=== PATIENT | female | born 1980 | race Caucasian/White ===

== ENCOUNTER → 2023-12-31 | Outpatient (CLI) | payer BC, SELFPAY ==
--- OUTSIDE RECORDS SUMMARY | 2023-12-31 19:03 | XMS RPT_ITS | CCD ---
Author Name Unknown Address [address] [place] [address] Organization [facility] Care Team Providers Care Chief Scientist Name Role Phone Deonte Hanson MD Primary Care Provider [phone] KJ LAW Attending Unavailable DEONTE HANSON Referring Unavailable DEONTE HANSON Primary Care Unavailable DEONTE HANSON Referring Unavailable DEONTE HANSON Primary Care Unavailable DEONTE HANSON Primary Care Unavailable DEONTE HANSON Referring Unavailable Deonte Hanson MD Primary Care Provider Allergies Allergy Classification Reported Allergen(s) Allergy Type Date of Onset Reaction(s) Facility (11 sources) Amoxicillin; Translations: [AMOXICILLIN] Drug Allergy 12-31-2006 [facility] Work Phone: (11 sources) cefdinir; Translations: [CEFDINIR] Drug Allergy 06-17-2007 [facility] Work Phone: (11 sources) Dextromethorphan; Translations: [DEXTROMETHORPHAN ] Drug Allergy 01-05-2006 [facility] Work Phone: Medications Current Medications Medication Drug Class(es) Dates Sig (Normalized) Sig (Original) clobetasol propionate 0.5 mg/ml medicated shampoo (1 source) Corticosteroid Start: 10-11-2022 End: 11-10-2022 Clobetasol Propionate (CLOBEX) 0.05 % sham Indications: Contact dermatitis, unspecified contact dermatitis type, unspecified trigger Apply to affected area two times a week. 118 mL 3 10/11/2022 11/10/2022 Active Completed/Discontinued Medications Medication Drug Class(es) Dates Sig (Normalized) Sig (Original) hydrocortisone 25 mg/ml topical cream (10 sources) Corticosteroid Start: 12-29-2021 hydrocortisone (ANUSOL-HC) 2.5 % rectal cream Indications: Hemorrhoids, unspecified hemorrhoid type 1 application by RECTAL route twice daily. 28 g 2 12/29/2021 Active Problems Problem Classification Problem Date Documented Da te Episodic/Chronic Allergic reactions (1 source) Contact dermatitis; Translations: [Unspecified contact dermatitis, unspecified cause] Episodic Headache; including migraine (11 sources) Migraine without aura; Translations: [Migraine without aura, not intractable, without status migrainosus] Onset: 06-16-2008 12-05-2016 Chronic Other screening for suspected conditions (not mental disorders or infectious disease) (5 sources) Patient encounter status; Translations: [Encounter for screening mammogram for malignant neoplasm of breast] Onset: 11-30-2022 Episodic Thyroid disorders (20 sources) Toxic diffuse goiter; 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] Onset: 03-22-2009 03-22-2009 Chronic Results Test Name Value Interpretation Reference Range Facil ity Vital Signs Date Time Vital Sign Value Performing Clinician Archie cha 10-11-2022 07:48-0500 Body weight 64.86 kg Kj Law APRN.CNP Work Phone: [facility] 10-11-2022 07:48-0500 Diastolic blood pressure 68 mm[Hg] Kj Law APRN.CNP Work Phone: [facility] 10-11-2022 07:48-0500 Heart rate 70 /min Kj Law APRN.BALBIR Work Phone: [facility] 10-11-2022 07:48-0500 Respiratory rate 16 /min Kj Law APRN.CNP Work Phone: [facility] 10-11-2022 07:48-0500 SaO2% (BldA) [Mass fraction] 100 % Kj Law APRN.CNP Work Phone: [facility] 10-11-2022 07:48-0500 Systolic blood pressure 120 mm[Hg] Kj Law APRN.BALBIR Work Phone: [facility] Encounters Encounter Date Encounter Type Care Provider Facility Start: 06-21-2023 ambulatory Sasha Rodriguez MD Work Phone: OB/Gynecology Procedures Date Procedure Procedure Detail Performing Clinician Start: 12-20-2022 Digital breast tomosynthesis unilateral Deonte Hanson MD Work Phone: Start: 11-30-2022 Mammography Deonte Hanson MD Work Phone: Start: 06-09-2021 Mammography Deonte Hanson MD Work Phone: Start: 05-11-2020 Adult depression screening assessment Deonte Hanson MD Work Phone: Start: 06-11-2012 History of radiation therapy H/O radioactive iodine thyroid ablation Deonte Hanson MD Work Phone: Plan of Treatment Date Care Activity Detail Author Start: 05-14-2025 HPV TESTING HPV TESTING [facility] Start: 11-30-2023 Mammography [facility] Start: 10-11-2023 ANNUAL PCP TEAM CHRONIC DISEASE VISIT ANNUAL PCP TEAM CHRONIC DISEASE VISIT [facility] Start: 06-22-2023 Covid-19 Vaccine ( season) Covid-19 Vaccine () [facility] Start: 06-22-2023 Influenza vaccination [facility] Start: 01-01-2023 End: 03-03-2023 Comprehensive metabolic 2000 panel - Serum or Plasma COMP METABOLIC PANEL Lab Routine Other specified hypothyroidism Expected: 01/01/2023, Expires: 03/03/2023 [facility] Work Phone: Immunizations Immunization Date Immunization Notes Care Provider Fa cility 01-27-2021 COVID-19 original vaccine, full dose, monovalent (MODERNA) Deonte Hanson MD Work Phone: [facility] 12-31-2020 COVID-19 original vaccine, full dose, monovalent (MODERNA) Deonte Hanson MD Work Phone: [facility] 08-05-2019 influenza virus vaccine, unspecified formulation Diagnostic Wstr [facility] 07-13-2012 influenza virus vaccine, unspecified formulation Deonte Hanson MD Work Phone: [facility] Work Phone: 07-29-2011 influenza virus vaccine, unspecified formulation Deonte Hanson MD Work Phone: [facility] 11-19-2009 novel [id number], all formulations Deonte Hanson MD Work Phone: [facility] 06-16-2008 tetanus toxoid, reduced diphtheria toxoid, and acellular pertussis vaccine, adsorbed Deonte Hanson MD Work Phone: [facility] Work Phone: 05-30-1990 tetanus and diphther ia toxoids, adsorbed, preservative free, for adult use (2 Lf of tetanus toxoid and 2 Lf of diphtheria toxoid) Deonte Hanson MD Work Phone: [facility] Work Phone: Payers Date Payer Category Payer Unknown [id number] 2018 Unknown [id number] Social History Date Type Detail Facility Start: 06-21-2011 End: 10-11-2022 Tobacco smoking status NHIS Ex-smoker [facility] Work Phone: End: 09-05-2007 History of tobacco use Current smoker [facility] Work Phone: End: 09-05-2007 History of tobacco use Cigarette Smoker [facility] Work Phone: Start: 06-21-2011 End: 10-11-2022 Tobacco use and exposure Smokeless tobacco non-user [facility] Work Phone: Start: 06-09-2021 End: 10-11-2022 Alcohol intake Current drinker of alcohol (finding) [facility] Start: 05-14-2020 History SDOH Alcohol Frequency 4 [facility] Start: 05-11-2020 End: 05-14-2020 History SDOH Alcohol Std Drinks 1 [facility] Start: 06-12-2014 History SDOH Alcohol Comment Socially [facility] Start: 05-11-2020 End: 05-14-2020 History SDOH Social Connections Phone 2 [facility] Start: 05-11-2020 History SDOH Social Connections Meetings 98 [facility] Start: 05-11-2020 History SDOH Social Connections Living 3 [facility] Start: 05-14-2020 History SDOH Financial 5 [facility] Start: 05-11-2020 Education 17 [facility] Start: 1980 Sex Assigned At Not on file [facility] Start: 05-11-2020 End: 11-17-2022 History of Social function [facility] Start: 05-11-2020 End: 11-17-2022 Social connection and isolation panel [facility] Do you belong to any clubs or organizations such as hoahaoism groups, unions, fraternal or athletic groups, or school groups? No [facility] How often do you att end meetings of the clubs or organizations you belong to? Patient refused [facility] Are you now , , , , never or living with a partner? [facility] How often to you hav e a drink containing alcohol? 2-3 time sa week [facility] How many standard dr inks containing alcohol do you have on a typical day? 1 or 2 [facility] How often do you hav e 6 or more drinks on 1 occasion? Never [facility] Do you feel stress - tense, restless, nervous, or anxious, or unable to sleep at night because your mind is troubled all the time - these days [OSQ] Only a little [facility] (I/We) worried wheth er (my/our) food would run out before (I/we) got money to buy more. Never true [facility] Clinical Notes 06-11-2012 to 06-21-2023 Telephone Encounter - Suzanne Resendiz LPN - 06/21/2023 2:24 PM EDTTelephone Encounter - Suzanne Resendiz LPN - 06/21/2023 2:04 PM EDTTelephone Encounter - Elisha Bone Ma - 01/01/2023 8:20 AM EDT Note Date & Type Note Facility 06-21-2023 Miscellaneous Notes Formattin g of this note might be different from the original. Form faxed to 's insurance company. Suzanne Resendiz LPN Form printed and given to provider to complete. Suzanne Resendiz LPN I can't view the image for the file. documented in this encounter [facility] 02-27-2023 Miscellaneous Notes Formattin g of this note might be different from the original. Pt calls to request lab orders be faxed to [facility] @ [phone]. Orders faxed as requested. Syl Jennings LPN documented in this encounter [facility] 01-01-2023 Miscellaneous Notes Formattin g of this note is different from the original. The following approved medication requests have been transmitted electronically. Requested Prescriptions Signed Prescriptions Disp Refills levothyroxine (SYNTHROID) 175 mcg tablet 90 tablet 0 Sig: Take 1 tablet by mouth daily before breakfast. SUMAtriptan (IMITREX) 50 mg tablet 9 tablet 0 Sig: Take 1 tablet by mouth. START AT ONSET OF HEADACHE. MAY REPEAT DOSE AFTER 2 HOURS. Сергей Arzate APRN.BALBIR Pt requesting refills on Thyroid - 12/12/21 #90 w/3 Sumatriptan - 12/12/21 # 9 w/11. Pt has only been seen acutely for visit on 10/11/22. Last visit in 04/2021. No appt scheduled at this time. Pt needs appt. Elisha Bone Ma documented in this encounter [facility] 12-25-2022 Miscellaneous Notes Formattin g of this note might be different from the original. Office received fax from [employer] for [employer] Request Form. This has been completed by pt an PCP and has been faxed back to [phone]. Elisha Bone Ma documented in this encounter [facility] 12-20-2022 Note HNO ID: [id number] Author: RT Stuart(Yemi) Service: ? Author Type: Production Reproduction Manager Type: Progress Notes Filed: 12/20/2022 1:09 PM Note Text: Radiology Service Progress Note PATIENT NAME: Marti Morgan DATE OF SERVICE: December 20, 2022 TIME: 1:09 PM PATIENT IDENTITY VERIFICATION COMPLETED USING TWO (2) IDENTIFIERS: Name and Date of confirmed by patient verbally. FALL SCREENING: Has the patient had 2 falls in the last year or 1 fall with injury or currently using an Ambulatory Assistive Device (Walker, Cane, Wheelchair, Crutches, etc.)? No PATIENT GENDER DATA: Female. status: : No status: NO. PATIENT RELEVANT IMPLANT DATA REVIEWED: Not Applicable RADIOLOGY DEPARTMENT: Mammography PERIPHERAL IV DATA: Not applicable SIGNED BY: RT Stuart(R) December 20, 2022 1:09 PM [facility] 12-20-2022 History of Presen t illness Narrative Radiology Service Progress Note PATIENT NAME: Marti Morgan DATE OF SERVICE: December 20, 2022 TIME: 1:09 PM PATIENT IDENTITY VERIFICATION COMPLETED USING TWO (2) IDENTIFIERS: Name and Date of confirmed by patient verbally. FALL SCREENING: Has the patient had 2 falls in the last year or 1 fall with injury or currently using an Ambulatory Assistive Device (Walker, Cane, Wheelchair, Crutches, etc.)? No PATIENT GENDER DATA: Female. status: : No status: NO. PATIENT RELEVANT IMPLANT DATA REVIEWED: Not Applicable RADIOLOGY DEPARTMENT: Mammography PERIPHERAL IV DATA: Not applicable SIGNED BY: RT Stuart(R) December 20, 2022 1:09 PM documented in this encounter [facility] 12-01-2022 Miscellaneous Notes Formattin g of this note might be different from the original. Pt called and notified of results below, verbalized understanding. Call back number given to pt to schedule. Elisha Bone Ma Please notify patient that her mammogram showed an indeterminate area in her left breast, so a diagnostic mammogram and ultrasound is recommended and ordered Deonte Hanson MD documented in this encounter [facility] 11-30-2022 Miscellaneous Notes Formattin g of this note might be different from the original. December 01, 2022 PID: [id number] Marti Morgan [address] [place] [address] Dear Ms. Morgan, Your recent breast imaging exam on 11/30/2022 showed a possible finding that requires additional imaging studies for a complete evaluation. Most such findings are probably benign (not cancer). Your mammogram demonstrates that you have dense breast tissue, which could hide abnormalities. Dense breast tissue, in and of itself, is a relatively common condition. Therefore, this information is not provided to cause undue concern; rather, it is to raise your awareness and promote discussion with your health care provider regarding the presence of dense breast tissue in addition to other risk factors. If you have a healthcare provider who ordered/prescribed your screening mammogram: Please call [phone] or [phone]: [phone] to schedule an appointment for your additional imaging (if you have not already done so). If you DO NOT have a healthcare provider (ie you did not have an order/prescription for your screening mammogram): Please call to schedule an appointment for your additional imaging (if you have not already done so). You must have an order/prescription from your physician when calling to schedule your appointment. If your order/prescription is not electronic, you must bring the hard copy with you on the day of your exam to avoid delays. Your imaging studies and reports are kept on file at [facility] as part of your permanent medical record, and are available for your continuing care. Thank you for allowing us to help in meeting your health care needs. Sincerely, Dr. Jerry Interpreting Radiologist [facility] (Additional imaging) documented in this encounter [facility] 11-30-2022 Note HNO ID: [id number] Author: RT Alo(R) Service: ? Author Type: Technologist Type: Progress Notes Filed: 11/30/2022 7:29 AM Note Text: Radiology Service Progress Note PATIENT NAME: Marti Morgan DATE OF SERVICE: November 30, 2022 TIME: 7:29 AM PATIENT IDENTITY VERIFICATION COMPLETED USING TWO (2) IDENTIFIERS: Name and Date of confirmed by patient verbally. FALL SCREENING: Has the patient had 2 falls in the last year or 1 fall with injury or currently using an Ambulatory Assistive Device (Walker, Cane, Wheelchair, Crutches, etc.)? No PATIENT GENDER DATA: Female. status: : No status: NO. PATIENT RELEVANT IMPLANT DATA REVIEWED: Not Applicable RADIOLOGY DEPARTMENT: Mammography PERIPHERAL IV DATA: Not applicable SIGNED BY: RT Alo(R) November 30, 2022 7:29 AM [facility] 10-11-2022 Note HNO ID: [id number] Author: Kj Law APRN.NEWSPAPER PEDDLER Service: ? Author Type: Nurse Practitioner Type: Progress Notes Filed: 10/11/2022 8:38 AM Note Text: This is a 41 year old female who presents today with: Patient presents with: Acute Visit: dry scalp HISTORY OF PRESENT ILLNESS: Marti Morgan is a 41 year old female. Patient presents with: Acute Visit: dry scalp Here in the office for dry scalp.Started about 4 weeks ago. Skin is dry and itchy. Has noticed crusting/scabs. Refers that rash is now down her neck and ears. Has been using head and shoulder clinical daily. Refers she tried ketoconazole shampoo for 1 week. Did not notice Improvement. PAST MEDICAL HISTORY: PAST MEDICAL HISTORY Diagnosis Date Abnormal Pap smear Acute gastritis without mention of hemorrhage GERD (gastroesophageal reflux disease) Other forms of migraine Thyrotoxicosis without mention of goiter or other cause, without mention of thyrotoxic crisis or storm Hypothyroidism PAST SURGICAL HISTORY Procedure Laterality Date DELIVERY ONLY 2006 COLPOSCOPY OF CERVIX 2008,06/2015,08/2016 EGD W/O BRSH SPECIMEN W/BX 01/26/11 INSERTION OF IUD 10/24/2010 Mirena OFFICE LEEP 2008,2015 ALLERGIES Amoxicillin, Omnicef [Cefdinir], and Triaminic Cough [Dextromethorphan] MEDICATIONS Current Outpatient Medications Medication Sig hydrocortisone (ANUSOL-HC) 2.5 % rectal cream 1 application by RECTAL route twice daily. levothyroxine (SYNTHROID) 175 mcg tablet Take 1 tablet by mouth daily before breakfast. SUMAtriptan (IMITREX) 50 mg tablet Take 1 tablet by mouth. START AT ONSET OF HEADACHE. MAY REPEAT DOSE AFTER 2 HOURS. omeprazole (PRILOSEC) 20 mg capsule Take 1 capsule by mouth once daily. levonorgestrel (MIRENA) 20 mcg/24 hours (6 yrs) 52 mg IUD 1 Each by INTRAUTERINE route as directed. meloxicam (MOBIC) 15 mg tablet Take 1 tablet by mouth once daily. Take with food. (Patient taking differently: Take 15 mg by mouth as needed. Take with food. ) No current facility-administered medications for this visit. FAMILY HISTORY Problem Relation Age of Onset Asthma Mother Heart Father ? arrythmia Heart Maternal Grandmother other (Other) Maternal Uncle brain tumor ca other (Brain Tumor) Maternal Grandfather Thyroid Maternal Uncle Thyroid Sister Social History Tobacco Use Smoking status: Former Types: Cigarettes Quit date: 09/05/2007 Years since quittin.1 Smokeless tobacco: Never Vaping Use Vaping Use: Never used Substance Use Topics Alcohol use: Yes Comment: Socially Drug use: No REVIEW OF SYSTEMS GENERAL: No weight loss, malaise or fevers/chills HEENT: Negative for frequent or significant headaches, No changes in hearing or vision. NECK: Negative for lumps, goiter, pain and significant neck swelling RESPIRATORY: Negative for cough, hemoptysis, wheezing, dyspnea or shortness of breath CARDIOVASCULAR: Negative for chest pain, leg swelling, orthopnea, or palpitations GI: No nausea, vomiting, or diarrhea/constipation. No hematochezia/melena. No heartburn or reflux symptoms. : No history of dysuria, frequency or incontinence MUSCULOSKELETAL: Negative for joint pain or swelling. SKIN: + dry scalp ENDOCRINE: Negative for cold or heat intolerance, polyuria, polydipsia and goiter NEURO: No history of headaches, syncope, paralysis, seizures or tremors MOOD: Negative for depression, anxiety, or suicidal ideation. EXAM: BP 120/68 Pulse 70 Resp 16 Wt 64.9 kg (143 lb) LMP 08/09/2022 (Approximate) SpO2 100% BMI 22.58 kg/m? PHYSICAL EXAM: General Appearance: Well appearing, alert, in no acute distress, well-hydrated, well nourished. Skin: + Dry, erythematic patches noted at the frontal aspect of scalp and base of neck near scalp. Mild crusting noted. No seeping. Head: Normocephalic, no masses, lesions, tenderness or abnormalities. Eyes: Anicteric sclera. Extraocular movements are intact. Lungs: Lungs clear to auscultation. No wheezing, rhonchi, rales. Heart: RRR without murmur, gallop, or rubs. No ectopy. Extremities: No deformities, edema, skin discoloration, clubbing or cyanosis. Good capillary refill. Peripheral Pulses: Normal, Capillary refill <2secs, strong peripheral pulses, Pulses palpable. Neurologic: Gait normal. Sensation grossly intact.. ASSESSMENT/PLAN: 1. Contact dermatitis, unspecified contact dermatitis type, unspecified trigger - ICD9: 692.9, ICD10: L25.9 - Topical steriod tx with Rx for steriod cream/ointment- see orders - Discussed skin care of rash - follow up if symptoms persist or worsen. - May use triamcinolone ointment to the base of the neck. Instructed to use clobetasol shampoo twice weekly for the next month. - Use fragrance free health and beauty products. - TRIAMCINOLONE ACETONIDE 0.1 % TOPICAL OINTMENT - CLOBETASOL 0.05 % SHAMPOO Follow-up as needed or sooner if symptoms get worse or do n (more content not included)... [facility] 10-11-2022 Instructions Kj Law APRN.BALBIR - 10/11/2022 8:07 AM EST May apply steroid ointment to back of head to rash Use steroid shampoo twice weekly. Recommend using fragrance free health and beauty products. Follow up as needed. documented in this encounter [facility] 10-11-2022 History of Presen t illness Narrative This is a 41 year old female who presents today with: Patient presents with: Acute Visit: dry scalp HISTORY OF PRESENT ILLNESS: Marti Morgan is a 41 year old female. Patient presents with: Acute Visit: dry scalp Here in the office for dry scalp.Started about 4 weeks ago. Skin is dry and itchy. Has noticed crusting/scabs. Refers that rash is now down her neck and ears. Has been using head and shoulder clinical daily. Refers she tried ketoconazole shampoo for 1 week. Did not notice Improvement. PAST MEDICAL HISTORY: PAST MEDICAL HISTORY Diagnosis Date Abnormal Pap smear Acute gastritis without mention of hemorrhage GERD (gastroesophageal reflux disease) Other forms of migraine Thyrotoxicosis without mention of goiter or other cause, without mention of thyrotoxic crisis or storm Hypothyroidism PAST SURGICAL HISTORY Procedure Laterality Date DELIVERY ONLY 2006 COLPOSCOPY OF CERVIX 2008,06/2015,08/2016 EGD W/O BRSH SPECIMEN W/BX 01/26/11 INSERTION OF IUD 10/24/2010 Mirena OFFICE LEEP 2008,2015 ALLERGIES Amoxicillin, Omnicef [Cefdinir], and Triaminic Cough [Dextromethorphan] MEDICATIONS Current Outpatient Medications Medication Sig hydrocortisone (ANUSOL-HC) 2.5 % rectal cream 1 application by RECTAL route twice daily. levothyroxine (SYNTHROID) 175 mcg tablet Take 1 tablet by mouth daily before breakfast. SUMAtriptan (IMITREX) 50 mg tablet Take 1 tablet by mouth. START AT ONSET OF HEADACHE. MAY REPEAT DOSE AFTER 2 HOURS. omeprazole (PRILOSEC) 20 mg capsule Take 1 capsule by mouth once daily. levonorgestrel (MIRENA) 20 mcg/24 hours (6 yrs) 52 mg IUD 1 Each by INTRAUTERINE route as directed. meloxicam (MOBIC) 15 mg tablet Take 1 tablet by mouth once daily. Take with food. (Patient taking differently: Take 15 mg by mouth as needed. Take with food. ) No current facility-administered medications for this visit. FAMILY HISTORY Problem Relation Age of Onset Asthma Mother Heart Father ? arrythmia Heart Maternal Grandmother other (Other) Maternal Uncle brain tumor ca other (Brain Tumor) Maternal Grandfather Thyroid Maternal Uncle Thyroid Sister Social History Tobacco Use Smoking status: Former Types: Cigarettes Quit date: 09/05/2007 Years since quittin.1 Smokeless tobacco: Never Vaping Use Vaping Use: Never used Substance Use Topics Alcohol use: Yes Comment: Socially Drug use: No REVIEW OF SYSTEMS GENERAL: No weight loss, malaise or fevers/chills HEENT: Negative for frequent or significant headaches, No changes in hearing or vision. NECK: Negative for lumps, goiter, pain and significant neck swelling RESPIRATORY: Negative for cough, hemoptysis, wheezing, dyspnea or shortness of breath CARDIOVASCULAR: Negative for chest pain, leg swelling, orthopnea, or palpitations GI: No nausea, vomiting, or diarrhea/constipation. No hematochezia/melena. No heartburn or reflux symptoms. : No history of dysuria, frequency or incontinence MUSCULOSKELETAL: Negative for joint pain or swelling. SKIN: + dry scalp ENDOCRINE: Negative for cold or heat intolerance, polyuria, polydipsia and goiter NEURO: No history of headaches, syncope, paralysis, seizures or tremors MOOD: Negative for depression, anxiety, or suicidal ideation. EXAM: BP 120/68 Pulse 70 Resp 16 Wt 64.9 kg (143 lb) LMP 08/09/2022 (Approximate) SpO2 100% BMI 22.58 kg/m PHYSICAL EXAM: General Appearance: Well appearing, alert, in no acute distress, well-hydrated, well nourished. Skin: + Dry, erythematic patches noted at the frontal aspect of scalp and base of neck near scalp. Mild crusting noted. No seeping. Head: Normocephalic, no masses, lesions, tenderness or abnormalities. Eyes: Anicteric sclera. Extraocular movements are intact. Lungs: Lungs clear to auscultation. No wheezing, rhonchi, rales. Heart: RRR without murmur, gallop, or rubs. No ectopy. Extremities: No deformities, edema, skin discoloration, clubbing or cyanosis. Good capillary refill. Peripheral Pulses: Normal, Capillary refill <2secs, strong peripheral pulses, Pulses palpable. Neurologic: Gait normal. Sensation grossly intact.. ASSESSMENT/PLAN: 1. Contact dermatitis, unspecified contact dermatitis type, unspecified trigger - ICD9: 692.9, ICD10: L25.9 - Topical steriod tx with Rx for steriod cream/ointment- see orders - Discussed skin care of rash - follow up if symptoms persist or worsen. - May use triamcinolone ointment to the base of the neck. Instructed to use clobetasol shampoo twice weekly for the next month. - Use fragrance free health and beauty products. - TRIAMCINOLONE ACETONIDE 0.1 % TOPICAL OINTMENT - CLOBETASOL 0.05 % SHAMPOO Follow-up as needed or sooner if symptoms get worse or do not improve. Discussed treatment plan and patient voices understanding. Patient's questions answered appropriately. Medications and potential side effects were discussed and patient voices understanding. Kj Law APRN.BALBIR This note was partially generated using JumpPost voice recognition system. Note was reviewed for accuracy. There may be minor misspellings or grammar miscues with [employer]Post voice recognition. documented in this encounter [facility] 07-12-2022 Note Patient Outreach (IN TMMN) MARTI MORGAN ([id number]) 1980 F Date Time Provider Department 07/12/22 DEONTE HANSON During your visit today, we recorded the following information about you: Allergies As of Date: 07/12/2022 Noted Allergy Reaction AMOXICILLIN 12/31/2006 4 - Hives OMNICEF (CEFDINIR) 06/17/2007 4 - Hives TRIAMINIC COUGH (DEXTROMETHORPHAN)01/05/2006 5 - Intolerance Date Reviewed: 06/09/2021 Reviewed by: Yue Thompson Ma - Fully Assessed Visit Diagnosis:Encounter for screening mammogram for breast cancer [Z12.31] Order(s):[facility] SCREENING Cirilo ROMERO [[id number]] Order #: [id number] FUTURE Prescriptions as of 07/17/2022 - hydrocortisone (ANUSOL-HC) 2.5 % rectal cream 1 application by RECTAL route twice daily. - levothyroxine (SYNTHROID) 175 mcg tablet Take 1 tablet by mouth daily before breakfast. - SUMAtriptan (IMITREX) 50 mg tablet Take 1 tablet by mouth. START AT ONSET OF HEADACHE. MAY REPEAT DOSE AFTER 2 HOURS. - omeprazole (PRILOSEC) 20 mg capsule Take 1 capsule by mouth once daily. - levonorgestrel (MIRENA) 20 mcg/24 hours (6 yrs) 52 mg IUD 1 Each by INTRAUTERINE route as directed. - meloxicam (MOBIC) 15 mg tablet Take 1 tablet by mouth once daily. Take with food. Problem List As Of Date 07/12/2022 Noted Resolved COMMON MIGRAINE [346.1] 06/17/2007 06/16/2008 Adjustment disorder with depressed mood [F43.21]06/17/2007 06/11/2012 Contraceptive surveillance, unspecified [Z30.40]03/04/2008 06/11/2012 Migraine without aura [G43.009] 06/16/2008 Depressive disorder, not elsewhere classified [*03/08/2009 06/11/2012 TOX DIF GOITER NO CRISIS [E05.00] 03/22/2009 Acute gastritis without mention of hemorrhage [*01/26/2011 06/11/2012 Abdominal pain, epigastric [R10.13] 01/26/2011 06/12/2011 GERD (gastroesophageal reflux disease) [K21.9] 06/12/2011 06/11/2012 Hypothyroid [E03.9] 03/19/2012 IUD (intrauterine device) in place [Z97.5] 06/11/2012 03/25/2013 H/O radioactive iodine thyroid ablation [Z92.3] 06/11/2012 Encounter Status:Closed by MAUREEN PRODUSER on 07/17/22 [facility] documented as of this encounter (statuses as of 07/17/2022) [facility]08-[facility]-2012 History of Past illness Narrative* Problem Noted Date Resolved Date IUD (intrauterine device) in place 06/11/2012 03/25/2013 GERD (gastroesophageal reflux disease) 1 06/11/2012 Acute gastritis without mention of hemorrhage 06/11/2012 Abdominal pain, epigastric 01/26/201106/12 Depressive disorder, not elsewhere classified 06/11/2012 Contraceptive surveillance, unspecified 03/04/20 08 06/11/2012 Migraine without aura 06/17/2007 06/16/2008 Adjustment disorder with depressed mood 06/17/20 07 06/11/2012 Overview: Start fluoxetine 10/28 documented as of this encounter (statuses as of 10/11/2022) [facility] History of Past illness Narrative* Problem Noted Date Resolved Date IUD (intrauterine device) in place 06/11/2012 03/25/2013 GERD (gastroesophageal reflux disease) 1 06/11/2012 Acute gastritis without mention of hemorrhage 06/11/2012 Abdominal pain, epigastric 01/26/201106/12 Depressive disorder, not elsewhere classified 06/11/2012 Contraceptive surveillance, unspecified 03/04/20 08 06/11/2012 Migraine without aura 06/17/2007 06/16/2008 Adjustment disorder with depressed mood 06/17/20 07 06/11/2012 Overview: Start fluoxetine 10/28 documented as of this encounter (statuses as of 12/01/2022) [facility] History of Past illness Narrative* Problem Noted Date Resolved Date IUD (intrauterine device) in place 06/11/2012 03/25/2013 GERD (gastroesophageal reflux disease) 1 06/11/2012 Acute gastritis without mention of hemorrhage 06/11/2012 Abdominal pain, epigastric 01/26/201106/12 Depressive disorder, not elsewhere classified 06/11/2012 Contraceptive surveillance, unspecified 03/04/20 08 06/11/2012 Migraine without aura 06/17/2007 06/16/2008 Adjustment disorder with depressed mood 06/17/20 07 06/11/2012 Overview: Start fluoxetine 10/28 documented as of this encounter (statuses as of 12/05/2022) [facility] History of Past illness Narrative* Problem Noted Date Resolved Date IUD (intrauterine device) in place 06/11/2012 03/25/2013 GERD (gastroesophageal reflux disease) 1 06/11/2012 Acute gastritis without mention of hemorrhage 06/11/2012 Abdominal pain, epigastric 01/26/201106/12 Depressive disorder, not elsewhere classified 06/11/2012 Contraceptive surveillance, unspecified 03/04/20 08 06/11/2012 Migraine without aura 06/17/2007 06/16/2008 Adjustment disorder with depressed mood 06/17/20 07 06/11/2012 Overview: Start fluoxetine 10/28 documented as of this encounter (statuses as of 12/06/2022) [facility] History of Past illness Narrative* Problem Noted Date Resolved Date IUD (intrauterine device) in place 06/11/2012 03/25/2013 GERD (gastroesophageal reflux disease) 1 06/11/2012 Acute gastritis without mention of hemorrhage 06/11/2012 Abdominal pain, epigastric 01/26/201106/12 Depressive disorder, not elsewhere classified 06/11/2012 Contraceptive surveillance, unspecified 03/04/20 08 06/11/2012 Migraine without aura 06/17/2007 06/16/2008 Adjustment disorder with depressed mood 06/17/20 07 06/11/2012 Overview: Start fluoxetine 10/28 documented as of this encounter (statuses as of 12/25/2022) [facility] History of Past illness Narrative* Problem Noted Date Resolved Date IUD (intrauterine device) in place 06/11/2012 03/25/2013 GERD (gastroesophageal reflux disease) 1 06/11/2012 Acute gastritis without mention of hemorrhage 06/11/2012 Abdominal pain, epigastric 01/26/201106/12 Depressive disorder, not elsewhere classified 06/11/2012 Contraceptive surveillance, unspecified 03/04/20 08 06/11/2012 Migraine without aura 06/17/2007 06/16/2008 Adjustment disorder with depressed mood 06/17/20 07 06/11/2012 Overview: Start fluoxetine 10/28 documented as of this encounter (statuses as of 01/01/2023) [facility] History of Past illness Narrative* Problem Noted Date Resolved Date IUD (intrauterine device) in place 06/11/2012 03/25/2013 GERD (gastroesophageal reflux disease) 1 06/11/2012 Acute gastritis without mention of hemorrhage 06/11/2012 Abdominal pain, epigastric 01/26/201106/12 Depressive disorder, not elsewhere classified 06/11/2012 Contraceptive surveillance, unspecified 03/04/20 08 06/11/2012 Migraine without aura 06/17/2007 06/16/2008 Adjustment disorder with depressed mood 06/17/20 07 06/11/2012 Overview: Start fluoxetine 10/28 documented as of this encounter (statuses as of 02/27/2023) [facility] History of Past illness Narrative* Problem Noted Date Diagnosed Date Resolved Date IUD (intrauterine device) in place 06/11/2012 03/25/2013 GERD (gastroesophageal reflux disease) 06/12/2011 06/11/2012 Acute gastritis without mention of hemorrhage 01/27/20 11 06/11/2012 Abdominal pain, epigastric 01/26/2011 0 06/12/2011 Depressive disorder, not elsewhere classified 03/08/20 09 06/11/2012 Contraceptive surveillance, unspecified 03/04/2008 06/11/2012 Migraine without aura 06/17/20072007 Adjustment disorder with depressed mood 06/17/2007 06/11/2012 Overview: Start fluoxetine 10/28 documented as of this encounter (statuses as of 06/21/2023) [facility] History of Past illness Narrative* Problem Noted Date Diagnosed Date Resolved Date IUD (intrauterine device) in place 06/11/2012 03/25/2013 GERD (gastroesophageal reflux disease) 06/12/2011 06/11/2012 Acute gastritis without mention of hemorrhage 01/27/20 11 06/11/2012 Abdominal pain, epigastric 01/26/2011 0 06/12/2011 Depressive disorder, not elsewhere classified 03/08/2006/11/2012 Contraceptive surveillance, unspecified 03/04/2008 06/11/2012 Migraine without aura 06/17/20072007 Adjustment disorder with depressed mood 06/17/2007 06/11/2012 Overview: Start fluoxetine 10/28 documented as of this encounter (statuses as of 08/26/2023) [facility] note* Diagnosis Encounter for screening mammogram for breast cancer documented in this encounter [facility] note* Diagnosis Contact dermatitis, unspecified contact dermatitis type, unspecified trigger- Primary documented in this encounter [facility] note* Diagnosis Abnormal mammogram- Primary Abnormal mammogram, unspecified documented in this encounter [facility] note* Diagnosis Other specified hypothyroidism- Primary Migraine without aura and without status migrainosus, not intractable Migraine without aura, without mention of intractable migraine without mention of status migrainosus documented in this encounter [facility] note* Diagnosis Abnormal mammogram Abnormal mammogram, unspecified documented in this encounter [facility] for referral (narrative)* Diagnostic Procedure Only (Routine) - Closed Specialty Diagnoses / Procedures Referred By Roni alvarez Referred To Contact [facility] Diagnoses Encounter for screening mammogram for breast cancer Procedures AMIE SCREENING W NICK SCREENING DIGITAL BREAST TOMOSYNTHESIS BI SCREENING MAMMOGRAPHY BI 2-VIEW BREAST INC CAD Deonte Hanson MD [address] [place] [address] [facility] [address] [place] [phone] Referral ID Status Reason Start Date Expiration Date Visits Requested Visits Authorized [id number] Closed Auto-Generated Referral Financial Clearance Required - OON Payor OON Notification Letter 07/12/2022 08/11/2023 1 0 [facility] for referral (narrative)* Diagnostic Procedure Only (Routine) - Pending Review Specialty Diagnoses / Procedures Referred By Roni alvarez Referred To Contact [facility] Diagnoses Abnormal mammogram Procedures US BREAST LTD LT US BREAST UNI REAL TIME WITH IMAGE LIMITED Deonte Hanson MD [address] [place] [address] [facility] [address] [place] [address] Referral ID Status Reason Start Date Expiration Date Visits Requested Visits Authorized [id number] Pending Review Auto-Generat ed Referral 12/01/2022 12/31/2023 1 1 * Diagnostic Procedure Only (Routine) - Pending Review Specialty Diagnoses / Procedures Referred By Roni alvarez Referred To Contact [facility] Diagnoses Abnormal mammogram Procedures AMIE DIAGNOSTIC LT DIAGNOSTIC MAMMOGRAPHY COMPUTER-AIDED DETCJ UNI Deonte Hanson MD [address] [place] [address] [facility] [address] [place] [address] Referral ID Status Reason Start Date Expiration Date Visits Requested Visits Authorized [id number] Pending Review Auto-Generat ed Referral 12/01/2022 12/31/2023 1 1 [facility] for visit Narrative* Diagnostic Procedure Only (Routine) - Closed Specialty Diagnoses / Procedures Referred By Roni alvarez Referred To Contact [facility] Diagnoses Abnormal mammogram Procedures AMIE DIAGNOSTIC LT DIAGNOSTIC MAMMOGRAPHY COMPUTER-AIDED DETCJ Doente Lindquist MD [address] [place] [address] [facility] [address] [place] [address] Referral ID Status Reason Start Date Expiration Date Visits Requested Visits Authorized [id number] Closed Auto-Generated Referral OON Notification Letter Patient Cleared - Admin/Distribution Systems Serviceperson/D irector advise to proceed or did not respond 12/01/2022 12/31/2023 1 2 [facility] Summary Purpose Family History No Family History Records FoundNo Family History Records Found Advance Directives No Advanced Directives Records FoundNo Advanced Directives Records Found Additional Source Comments Source Comments (unrecognize d section and content) In the event this informatio n is protected by the Federal Confidentiality of Alcohol and Drug Abuse Patient Records regulations: The Federal rules restrict any use of the information to criminally investigate or prosecute any alcohol or drug abuse patient.[facility] the event this information is protected by the Federal Confidentiality of Alcohol and Drug Abuse Patient Records regulations: The Federal rules restrict any use of the information to criminally investigate or prosecute any alcohol or drug abuse patient.[facility] the event this information is protected by the Federal Confidentiality of Alcohol and Drug Abuse Patient Records regulations: The Federal rules restrict any use of the information to criminally investigate or prosecute any alcohol or drug abuse patient.[facility] the event this information is protected by the Federal Confidentiality of Alcohol and Drug Abuse Patient Records regulations: The Federal rules restrict any use of the information to criminally investigate or prosecute any alcohol or drug abuse patient.[facility] the event this information is protected by the Federal Confidentiality of Alcohol and Drug Abuse Patient Records regulations: The Federal rules restrict any use of the information to criminally investigate or prosecute any alcohol or drug abuse patient.[facility] the event this information is protected by the Federal Confidentiality of Alcohol and Drug Abuse Patient Records regulations: The Federal rules restrict any use of the information to criminally investigate or prosecute any alcohol or drug abuse patient.[facility] the event this information is protected by the Federal Confidentiality of Alcohol and Drug Abuse Patient Records regulations: The Federal rules restrict any use of the information to criminally investigate or prosecute any alcohol or drug abuse patient.[facility] the event this information is protected by the Federal Confidentiality of Alcohol and Drug Abuse Patient Records regulations: The Federal rules restrict any use of the information to criminally investigate or prosecute any alcohol or drug abuse patient.[facility] the event this information is protected by the Federal Confidentiality of Alcohol and Drug Abuse Patient Records regulations: The Federal rules restrict any use of the information to criminally investigate or prosecute any alcohol or drug abuse patient.[facility] the event this information is protected by the Federal Confidentiality of Alcohol and Drug Abuse Patient Records regulations: The Federal rules restrict any use of the information to criminally investigate or prosecute any alcohol or drug abuse patient.[facility] Care Teams (unrecognized sec tion and content) Chief Scientist Relationship Specialty Start Date End Date Deonte Hanson MD [address] [place] [address] PCP - General 07/21/09 Chief Scientist Relationship Specialty Start Date End Date Deonte Hanson MD [address] [place] [address] PCP - General 07/21/09 Chief Scientist Relationship Specialty Start Date End Date Deonte Hanson MD [address] [place] [address] PCP - General 07/21/09 Chief Scientist Relationship Specialty Start Date End Date Deonte Hanson MD [facility] [place] [address] PCP - General 07/21/09 Chief Scientist Relationship Specialty Start Date End Date Deonte Hanson MD [address] [place], [place] [phone] PCP - General 07/21/09 Chief Scientist Relationship Specialty Start Date End Date Deonte Hanson MD [address] [place], [place] [phone] PCP - General 07/21/09 Chief Scientist Relationship Specialty Start Date End Date Deonte Hanson MD [address] [place], [place] [phone] PCP - General 07/21/09 Chief Scientist Relationship Specialty Start Date End Date Deonte Hanson MD [address] [place], [place] [phone] PCP - General 07/21/09 Reason for Visit (unrecogniz ed section and content) Specialty Diagnoses / Procedures Referred By Roni alvarez Referred To Contact [facility] Diagnoses Dry scalp dry scalp Procedures est pt Deonte Hanson MD [address] [place] [address] [facility] [address] [place] [address] Referral ID Status Reason Start Date Expiration Date V isits Requested Visits Authorized [id number] Closed OON/Self Pay Override Patient Cleared - INN Insurance Found 10/09/2022 04/07/2023 1 0 Reason Comments Results Reason Comments Mammogram Result Call Back Reason Comments Forms Reason Comments Lab Orders INFORMATION SOURCE (unrecogn ized section and content) DATE CREATED AUTHOR AUTHOR'S ORGANIZ ATION 03/04/2023 [facility] FOR RECORDS PERTAINING TO PATIENTS WHO ARE OR HAVE BEEN ENROLLED IN A CHEMICAL DEPENDENCY/SUBSTANCEABUSE PROGRAM, SOME INFORMATION MAY BE OMITTED. This clinical summary was aggregated from multiple sources. Caution should be exercised in using it in the provision of clinical care. This summary normalizes information from multiple sources, and as a consequence, information in this document may materially change the coding, format and clinical context of patient data. In addition, data may be omitted in some cases. CLINICAL DECISIONS SHOULD BE BASED ON THE PRIMARY CLINICAL RECORDS. [facility] [employer] [facility]. provides no warranty or guarantee of the accuracy or completeness of information in this document.
[2024-01-03 13:08] LABS: HPV APTIMA, High Risk Negative (Negative)
== END | disposition home or self-care (01) ==
LOC: LABSPEC 13:19
PROVIDERS: PCP Family Medicine; Referring Provider Obstetrics & Gynecology; Visit Provider Obstetrics & Gynecology
DX: Z12.4 Encounter for screening for malignant neoplasm of cervix (principal)
CPT/HCPCS: 87624; 88175; G0145

== ENCOUNTER → 2024-01-09 | Outpatient (CLI) | payer BC, SELFPAY ==
--- NOTE | 2024-01-09 16:15 | BI_ITS ---
MAMMOGRAPHY - BILATERAL SCREENING REASON FOR EXAM: Female, 43 years old. Routine annual screening examination. PERTINENT HISTORY: Sister with breast cancer. Chronic inversion of the left nipple complex. TECHNIQUE: Digital bilateral breast nick (3D mammographic acquisition) in the CC and MLO projections. 2-D mediolateral oblique (MLO) and craniocaudad (CC) views of both breasts were obtained. CAD: Full Field Digital Mammography with Computer Added Detection was performed. COMPARISON: Comparison is made with prior outside examination of November 30, 2022. FINDINGS: Breast Composition: The breasts are extremely dense, which lowers the sensitivity of mammography. There are no dominant masses or suspicious calcifications. No other significant abnormalities are identified. There has been no significant change since the prior study. BI/SCRN MAMM (CAD)W/NICK BILAT IMPRESSION: Stable bilateral screening mammogram. Yearly follow-up mammogram recommended. (A) ASSESSMENT CATEGORY: BIRADS Category 1: Negative. A letter regarding these results will be sent to the patient by the facility within 30 days. Approximately 10% of breast cancers are not detected by mammography. A normal mammogram should not delay biopsy of a clinically suspicious abnormality. [id number] Electronically Signed: Hector Torres MD at 10:29 EDT ,
== END | disposition home or self-care (01) ==
LOC: OPBI 16:15
PROVIDERS: PCP Internal Medicine; Referring Provider Obstetrics & Gynecology; Visit Provider Obstetrics & Gynecology
DX: Z12.31 Encounter for screening mammogram for malignant neoplasm of breast (principal)
CPT/HCPCS: 77063; 77067

== ENCOUNTER → 2024-04-29 | Outpatient (CLI) | payer BC, SELFPAY ==
[2024-04-29 10:00] LABS: Absolute Lymphocyte Count 1.38 X10^3/uL (0.83-4.51); Absolute Neutrophil Count 3.2 X10^3/uL (2.0-7.7); Basophil# 0.04 X10^3/uL; Basophil% 0.8 % (0-1); Eosinophil# 0.16 X10^3/uL; Hematocrit 37.9 % (37-47); Hemoglobin 12.4 g/dL (12.0-15.0); Lymphocyte # 1.38 X10^3/ul (0.83-4.51); Lymphocyte % 26.1 % (19-41); Mean Corp Hgb Conc 32.7 g/dL (32-36); Mean Corpuscular Hgb 31.4 pg (27.0-32.0); Mean Corpuscular Volume 95.9 fL (81-99); Mean Platelet Vol. 12.2 fl (6.2-12.0); Monocyte# 0.51 X10^3/uL; Monocyte% 9.7 % (0-10); NRBC Flagged by Analyzer 0 % (0-5); Neutrophil # 3.18 X10^3/uL (2.7-7.7); Neutrophil % 60.2 % (47-70); Platelet Count 188 K/mm3 (150-450); RBC Distribution Width CV 12.1 % (11.6-14.6); Red Blood Count 3.95 M/mm3 (4.2-5.4); White Blood Count 5.3 K/mm3 (4.4-11.0)
[2024-04-29 10:45] LABS: ALB/GLOB Ratio 1.1 RATIO (0.9-2.4); AST(SGOT) 18 U/L (15-37); Alanine Aminotransfer ALT/SGPT 14 U/L (13-56); Albumin, Serum 3.6 g/dL (3.2-5.0); Alkaline Phosphatase 28 U/L (45-117); Anion Gap 4 (5-15); BUN 10 mg/dL (7-18); Calcium,Total 8.5 mg/dL (8.5-10.1); Chloride 109 mmol/L (98-107); Cholesterol 105 mg/dL (200); Creatinine, Serum 0.71 mg/dL (0.55-1.02); EST Glomerular Filtration Rate 95 mL/min (>60); Est Glom Filt Rate - Afr Amer 115 mL/min (>60); Globulin 3.2 g/dL (2.2-4.2); Glucose 83 mg/dL (74-106); High Density Lipoprotein 53 mg/dL; Potassium 3.8 mmol/L (3.5-5.1); Protein, Total 6.8 g/dL (6.4-8.2); Sodium Level 138 mmol/L (136-145); Triglycerides 33 mg/dL; Very Low Density Lipoprotein 7 mg/dL (5-40)
== END | disposition home or self-care (01) ==
PROVIDERS: PCP Internal Medicine; Referring Provider Internal Medicine; Visit Provider Internal Medicine
DX: E03.9 Hypothyroidism, unspecified (principal); G43.709 Chronic migraine without aura, not intractable, without status migrainosus
CPT/HCPCS: 36415; 80053; 80061; 84443; 85025

== ENCOUNTER → 2024-11-05 | Outpatient (CLI) | payer BC, SELFPAY ==
[2024-11-05 12:27] LABS: Absolute Lymphocyte Count 1.27 X10^3/uL (0.83-4.51); Absolute Neutrophil Count 3.5 X10^3/uL (2.0-7.7); Basophil# 0.05 X10^3/uL; Basophil% 0.9 % (0-1); Eosinophils% 1.8 % (0-5); Hematocrit 43.2 % (37-47); Hemoglobin 14.2 g/dL (12.0-15.0); Lymphocyte # 1.27 X10^3/ul (0.83-4.51); Lymphocyte % 22.4 % (19-41); Mean Corp Hgb Conc 32.9 g/dL (32-36); Mean Corpuscular Hgb 31.6 pg (27.0-32.0); Mean Corpuscular Volume 96.2 fL (81-99); Mean Platelet Vol. 12.7 fl (6.2-12.0); Monocyte# 0.71 X10^3/uL; Monocyte% 12.5 % (0-10); NRBC Flagged by Analyzer 0 % (0-5); Neutrophil # 3.53 X10^3/uL (2.7-7.7); Platelet Count 233 K/mm3 (150-450); RBC Distribution Width SD 42.5 fl (35.1-43.9); Red Blood Count 4.49 M/mm3 (4.2-5.4); White Blood Count 5.7 K/mm3 (4.4-11.0)
[2024-11-05 12:45] LABS: Vitamin B12 789 pg/mL (211-911); Vitamin D,25 Hydroxy 49.8 ng/mL
[2024-11-05 13:04] LABS: ALB/GLOB Ratio 1.1 RATIO (0.9-2.4); AST(SGOT) 14 U/L (15-37); Alanine Aminotransfer ALT/SGPT 19 U/L (13-56); Albumin, Serum 3.9 g/dL (3.2-5.0); Alkaline Phosphatase 35 U/L (45-117); Anion Gap 6 (5-15); BUN 10 mg/dL (7-18); BUN/Creat Ratio 14.8 RATIO (10-20); Calcium,Total 8.8 mg/dL (8.5-10.1); Chloride 107 mmol/L (98-107); Creatinine, Serum 0.68 mg/dL (0.55-1.02); EST Glomerular Filtration Rate 100 mL/min (>60); Est Glom Filt Rate - Afr Amer 121 mL/min (>60); Ferritin 48 ng/mL (8-252); Globulin 3.6 g/dL (2.2-4.2); Glucose 88 mg/dL (74-106); Iron 107 ug/dL (50-170); Iron Binding Capacity,Total 273 ug/dL (250-450); Magnesium 2.2 mg/dL (1.6-2.6); PERCENT IRON SATURATION 39.2 % (15.0-55.0); Potassium 4.2 mmol/L (3.5-5.1); Protein, Total 7.5 g/dL (6.4-8.2); Sodium Level 138 mmol/L (136-145)
== END | disposition home or self-care (01) ==
LOC: BIMLAB 08:14
PROVIDERS: PCP Internal Medicine; Referring Provider Internal Medicine; Visit Provider Internal Medicine
DX: G43.709 Chronic migraine without aura, not intractable, without status migrainosus (principal); E03.9 Hypothyroidism, unspecified; G47.00 Insomnia, unspecified
CPT/HCPCS: 36415; 80053; 82306; 82607; 82728; 83540; 83550; 83735; 84443; 85025

== ENCOUNTER → 2025-06-19 | Outpatient (CLI) | payer BC, SELFPAY ==
--- NOTE | 2025-06-19 08:45 | BI_ITS ---
EXAM: SCRN MAMM (CAD)W/NICK BILAT DATE: 06/19/2025 CLINICAL HISTORY: F, Age 44 y/o , SCREEN FOR BREAST CANCER TECHNIQUE: SCRN MAMM (CAD)W/NICK BILAT COMPARISON: Prior exam(s) dated 01/09/2024... FINDINGS: TISSUE DENSITY: The breasts are extremely dense, which lowers the sensitivity of mammography. The mammogram demonstrates that the patient has dense breasts. Supplemental screening with whole breast ultrasound or MRI may be considered for further evaluation. Bilateral Breast Mammographic Findings: No significant masses, calcifications or other abnormalities are identified. BI/SCRN MAMM (CAD)W/NICK BILAT IMPRESSION: There is no mammographic evidence of malignancy. OVERALL FINAL ASSESSMENT BI-RADS 1: NEGATIVE. RECOMMENDATION: Routine annual follow-up in 1 Year A letter with findings and recommendations will be mailed to the patient. Reading Location: [id number]
--- OUTSIDE RECORDS SUMMARY | 2025-06-19 09:07 | XMS RPT_ITS | CCD ---
Author Organization [facility] Care Team Providers Care It Systems Analyst Consultant Name Role Phone Deonte Hanson MD Primary Care Provider Dr. Deonte Hanson Primary Care Provider Dr. Deonte Hanson Referring Provider Dr. Sahvon Duran Attending Provider Deonte Hanson MD Primary Care Provider Deonte Hanson MD Primary Care Provider [phone] Tannoraf MANAGER AMBULATORY.BEHAVIOR SUPPORT SPECIALIST, Slime Unavailable Huey MANAGER AMBULATORY.BEHAVIOR SUPPORT SPECIALIST, Сергей Unavailable Dr. Vanessa Chandler MD Primary Care Provider [phone] Dr. Vanessa Chandler MD Referring Provider Myke Boss Attending Provider Myke Boss Attending Unavailable Ramesh, Vanessa Primary Care Unavailable [place], Vanessa Referring Unavailable [place], Vanessa Attending Unavailable Ramesh, Vanessa Primary Care Unavailable [place], Vanessa Referring Unavailable [place], Vanessa Attending Unavailable [place], Vanessa Primary Care Unavailable Ramesh, Vanessa Referring Unavailable Allergies Allergy Classification Reported Allergen(s) Allergy Type Date of Onset Reaction(s) Facility (15 sources) Amoxicillin Drug Allergy 7 [facility] Work Phone: (12 sources) cefdinir Drug Allergy 7 [facility] Work Phone: (12 sources) Dextromethorphan Drug Allergy 6 Intolerance [facility] Work Phone: (1 source) Amoxicillin Drug Allergy [facility] Repository Medications Current Medications Medication Drug Class(es) Dates Sig (Normalized) Sig (Original) azithromycin 250 mg oral tablet (1 source) Macrolide Antimicrobial Start: 05-22-2025 Azithromycin (Zithromax Z-Benny) 250 mg tablet Active 0 PO .COMPLEX 6 0 May 22, 2025 12:00am For 250 mg dose pack: take 500 mg today (day 1), then 250 mg for 4 days (days 2-5) PO clobetasol propionate 0.5 mg/ml medicated shampoo (1 source) Corticosteroid Start: 10-11-2022 End: 11-10-2022 Clobetasol Propionate (CLOBEX) 0.05 % sham Indications: Contact dermatitis, unspecified contact dermatitis type, unspecified trigger Apply to affected area two times a week. 118 mL 3 10/11/2022 11/10/2022 Active Comment on above: Apply to affected ar ea two times a week. hydrocortisone 10 mg/ml topical cream (15 sources) Corticosteroid Start: 04-17-2023 Hydrocortisone (Cortisone (Hydrocortisone)) 1 % cream Active 1 NMA TOPICAL THREE TIMES A DAY as needed April 17, 2023 12:00am Start: 12-29-2021 hydrocortisone (ANUSOL-HC) 2.5 % rectal cream Indications: Hemorrhoids, unspecified hemorrhoid type 1 application by RECTAL route twice daily. 28 g 2 12/29/2021 Active Comment on above: 1 application by REC ANTONIA route twice daily. levonorgestrel 0.140717 mg/hr intrauterine system (15 sources) Progestin, Progestin-containing Intrauterine Device Start: 04-17-2023 Levonorgestrel (Mirena) 21 mcg/24 hours (8 yrs) 52 mg intrauterine device Active 1 DEVICE INTRA-UTER ONCE April 17, 2023 12:00am as a single dose Start: 03-15-2021 End: 03-14-2027 Levonorgestrel (Mirena) 21 m cg/24 hours (8 yrs) 52 mg intrauterine device Active 1 NMA INTRA-UTER ONCE April 17, 2023 12:00am as a single dose Comment on above: 1 Each by INTRAUTERI NE route as directed. meloxicam 15 mg oral tablet (12 sources) Nonsteroidal Anti-inflammatory Drug Start: 0 take 1 tablet by mouth once daily at mealtime meloxicam (MOBIC) 15 mg tablet Take 1 tablet by mouth once daily. Take with food. 30 tablet 1 05/11/2020 Active Comment on above: Take 1 tablet by walter once daily. Take with food. omeprazole 20 mg delayed release oral capsule (12 sources) Proton Pump Inhibitor Start: 1 take 1 capsule by mouth once daily omeprazole (PRILOSEC) 20 mg capsule Take 1 capsule by mouth once daily. 30 capsule 1 06/02/2021 Active Comment on above: Take 1 capsule by mo cox branson once daily. predniSONE 20 mg oral tablet (1 source) Start: 5 take 1 tablet by mouth twice daily Prednisone 20 mg tablet Active 20 mg PO TWICE A DAY 10 0 May 22, 2025 12:00am SUMAtriptan 50 mg oral tablet (18 sources) Serotonin-1b and Serotonin-1d Receptor Agonist Start: 3 End: 5 Sumatriptan Succinate 50 mg tablet Active 50 mg PO .prn 20 April 13, 2025 11:19am Start: 12-12-2021 End: 01-01-2023 take 1 tablet by mouth every two hours SUMAtriptan (IMITREX) 50 mg tablet Take 1 tablet by mouth. START AT ONSET OF HEADACHE. FEBRUARY REPEAT DOSE AFTER 2 HOURS. 9 tablet 11 12/12/2021 01/01/2023 Discontinued Comment on above: Take 1 tablet by walter . START AT ONSET OF HEADACHE. FEBRUARY REPEAT DOSE AFTER 2 HOURS. traZODone hydrochloride 50 mg oral tablet (2 sources) Serotonin Reuptake Inhibitor Start: 12-08-19 End: 01-20-20 take 1 tablet by mouth at bedtime as needed for sleep Trazodone 50 mg tablet Active 50 mg PO AT BEDTIME as needed for sleep January 19, 2025 7:44am triamcinolone acetonide 0.001 mg/mg topical ointment (1 source) Corticosteroid Start: 10-11-20 End: 10-21-20 triamcinolone acetonide (KENALOG) 0.1 % ointment Indications: Contact dermatitis, unspecified contact dermatitis type, unspecified trigger Apply to affected area twice daily for 10 days. 30 g 1 10/11/2022 10/21/2022 Active Comment on above: Apply to affected ar ea twice daily for 10 days. Completed/Discontinued Medications Medication Drug Class(es) Dates Sig (Normalized) Sig (Original) eszopiclone 1 mg oral tablet (1 source) Start: 11-05-2024 End: 12-08-2024 take 1 tablet by mouth at bedtime Eszopiclone (Lunesta) 1 mg tablet Discontinued 1 mg PO AT BEDTIME 14 0 November 05, 2024 1:00am December 08, 2024 11:03pm levothyroxine sodium 0.175 mg oral tablet (20 sources) l-Thyroxine Start: 03-01-2023 End: 04-13-2025 take 1 tablet by mouth once daily Levothyroxine 175 mcg tablet Discontinued 175 ug PO DAILY 90 0 April 13, 2025 11:20am April 13, 2025 11:22am Start: 12-12-2021 End: 01-01-2023 take 1 tablet by mouth once daily before breakfast levothyroxine (SYNTHROID) 175 mcg tablet Take 1 tablet by mouth daily before breakfast. 90 tablet 3 12/12/2021 01/01/2023 Discontinued Comment on above: Take 1 tablet by walter th daily before breakfast. Problems Active Problems Problem Classification Problem Date Documented Da te Episodic/Chronic Allergic reactions (1 source) Contact dermatitis; Translations: [Unspecified contact dermatitis, unspecified cause] Episodic Headache; including migraine (18 sources) Migraine without aura; Translations: [Migraine without aura, not intractable, without status migrainosus] Onset: 06-17-2007 Resolved: 06-16-2008 12-05-2016 Chronic Other lower respiratory disease (1 source) Cough; Translations: [Cough] 05-22-2025 Episodic Other screening for suspected conditions (not mental disorders or infectious disease) (5 sources) Patient encounter status; Translations: [Encounter for screening mammogram for malignant neoplasm of breast] Episodic Thyroid disorders (20 sources) Toxic diffuse goiter; 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] Onset: 03-22-2009 03-22-2009 Chronic Unclassified (1 source) Cough, unspecified; Translations: [Cough, unspecified] Onset: 05-22-2025 Past or Other Problems Problem Classification Problem Date Documented Date Episodic/Chronic Abdominal pain (1 source) Epigastric pain; Translations: [Epigastric pain] Onset: 01-26-2011 Resolved: 06-12-2011 06-12-2011 Episodic Adjustment disorders (1 source) Adjustment disorder with depressed mood; Translations: [Adjustment disorder with depressed mood] Onset: 06-17-2007 Resolved: 06-11-2012 06-11-2012 Chronic Contraceptive and procreative management (2 sources) Contraception ; Translations: [Encounter for surveillance of contraceptives, unspecified] Onset: 03-04-2008 Resolved: 03-25-2013 06-11-2012 Episodic Esophageal disorders (1 source) Gastroesophageal reflux disease; Translations: [Gastro-esophageal reflux disease without esophagitis] Onset: 06-12-2011 Resolved: 06-11-2012 06-11-2012 Chronic Gastritis and duodenitis (1 source) Acute gastritis; Translations: [Acute gastritis without bleeding] Onset: 01-26-2011 Resolved: 06-11-2012 06-11-2012 Episodic Mood disorders (1 source) Depressive disorder; Translations: [Other specified depressive episodes] Onset: 03-08-2009 Resolved: 06-11-2012 06-11-2012 Chronic Residual codes; unclassified (1 source) Insomnia, unspecified; Translations: [Insomnia, unspecified] Onset: 11-05-2024 Episodic Unclassified (1 source) Patient encounter status 12-30-2024 Results Test Name Value Interpretation Reference Range Facility Internal Medicine Office Vis ito 05-22-2025 Internal Medicine Office Visit [facility] [address] [place] [id number] OFFICE VISIT Date of Service: 05/22/25 MR#: [id number] Acct: [id number] Name: MARTI MORGAN Rep #: [id number] : 1980 Provider: HOSSEIN Simmons Age/Sex: 44/F [place] [facility] Status: Signed Intake Vital Signs 11/05/24 07:33 05/22/25 08:07 05/22/25 13:35 Height 5 ft 6 in 5 ft 6 in 5 ft 6 in Weight: 143 lb 136 lb BMI 23.1 21.9 BP 116/70 126/80 H Blood Pressure Location Lt brachial Lt brachial Position Sitting Sitting Respiration 16 16 Pulse 69 66 Pulse Source Monitor Monitor Temp 97.5 F L 97.7 F L Temp Source Temporal Temporal Pulse Oximetry (%) 99 100 Oxygen Delivery Method room air room air Intake Visit Reasons: ACUTE COUGH Chief Complaint: Cough Area Field Worker Required: No Accompanied by: Self Is patient in pain?: No Allergies amoxicillin Allergy (Mild, Verified 05/22/25 13:36) hives Medications ???Medication ???Instructions ???Recorded ???Confirmed ???Type hydrocortisone 1 % topical cream 1 applic topical TID PRN 04/17/23 05/22/25 History (Cortisone (hydrocortisone)) levonorgestrel (Mirena) 1 device intrauterine ONCE 3 05/22/25 History trazodone 50 mg tablet 50 mg PO QHS PRN sleep #30 tabs 05/22/25 Rx levothyroxine 175 mcg tablet 175 mcg PO DAILY #90 tabs 04/13/25 05/22/25 Rx sumatriptan succinate 50 mg tablet 50 mg PO .prn #20 tabs 04/13/25 05/22/25 Rx azithromycin 250 mg tablet See Rx Instructions PO .COMPLEX #6 05/22/25 05/22/25 Rx (Zithromax Z-Benny) tabs prednisone 20 mg tablet 20 mg PO BID #10 tabs 05/22/2511/15 Rx Nurse's Note: Patient presents with a deep cough that has been present for about a month. Says the cough is deep in the chest with congestion. Also says the cough is not frequent, so when she does cough it is deep and leaves the chest sore. [facility] Medical History IUD (intrauterine device) in place History of breast lump Coccyx pain Goiter Migraine GERD (gastroesophageal reflux disease) Thyroid disease Surgical History History of colposcopy H/O LEEP History of delivery Family History Mother Asthma Sister Breast cancer Thyroid disorder Grandfather Brain cancer Father Heart disease Brother Multiple sclerosis Thyroid disorder Sister Thyroid disorder Social History adopted: No household members: spouse and children number of children: 1 current occupational status: employed current occupation: controller for [employer] pets and animals: Yes (1) pets and animals: dog(s) sexually active: Yes Smoking Status: Former smoker quit date: 10/22/05 Tobacco: How many years used: 1 Electronic Cigarette Use: not used alcohol intake: current alcohol intake frequency: a few times a week substance use type: does not use caffeine: Yes (2) Type: coffee what type of physical activity do you participate in: none frequency: 1-2 times per week do you feel safe at home: Yes 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 Patient states that she started with a little cough about a month ago. She states that she has had a little more nasal congestion the past couple of days but has not been lingering since the beginning. She states that she has not had any fevers, shortness of breath, chest pains or other symptoms. She states that she has not had any history of asthma or respiratory illnesses. She has taken some mucinex periodically. She states that her son had some similar symptoms and similar pattern with it getting better but then coming back again. She states that it is worse first thing in the AM and /or at night. It does calm a little while at work but she is actively trying not to cough. The cough is loose / rattly and feels like it wants to be productive but she doesn't get much up. Occasionally gets some phlegm. She is not and has never been a smoker. No Pneumonia history ROS Const Constitutional: No body ache, chills, excessive sweating, fatigue, fever(s), frequent falls, headache(s), snoring, weakness, weight change, sleep problems or change in appetite Eyes Eyes: No blurry vision, change in vision, eye pain or Light sensitivity ENT ENT: No abnormal hearing, ear or mastoid pain, tinnitus, nasal congestion, headache(s), neck pain or sore throat Resp Respiratory: No cough, shortness of breath, snoring or wheezing Cardio Cardiology: No chest pain at rest, chest pain with exertion, excessive sweating, shortness of (more content not included)... Normal [facility] CBC W/Diff, Automatedon -10 26-2024 Absolute Lymph 1.27 X10 3/uL Normal 0.83-4.51 [facility] Comment on above: Performed By: #### L 500.4050, L100.0100, L501.5200, L506.1000, L503.0105, L503.6030, L501.9520, L503.6550 #### [facility] [address] [place], [address] Absolute Neut 3.5 X10 3/uL Normal 2.0-7.7 [facility] Comment on above: Performed By: #### L 500.4050, L100.0100, L501.5200, L506.1000, L503.0105, L503.6030, L501.9520, L503.6550 #### [facility] [address] [place], [address] Basophils/100 WBC (Bld) 0.9 % Normal 0-1 [facility] Comment on above: Performed By: #### L 500.4050, L100.0100, L501.5200, L506.1000, L503.0105, L503.6030, L501.9520, L503.6550 #### [facility] [address] [place], [address] Eosinophils/100 WBC (Bld) 1.8 % Normal 0-5 [facility] Comment on above: Performed By: #### L 500.4050, L100.0100, L501.5200, L506.1000, L503.0105, L503.6030, L501.9520, L503.6550 #### [facility] [address] [place], [address] Erythrocyte distribution width (RBC) [Ratio] 12.0 % Normal 11.6-14.6 [facility] Comment on above: Performed By: #### L 500.4050, L100.0100, L501.5200, L506.1000, L503.0105, L503.6030, L501.9520, L503.6550 #### [facility] [address] [place], [address] Hematocrit (Bld) [Volume fraction] 43.2 % Normal 37-47 [facility] Comment on above: Performed By: #### L 500.4050, L100.0100, L501.5200, L506.1000, L503.0105, L503.6030, L501.9520, L503.6550 #### [facility] [address] [place], [address] Hemoglobin (Bld) [Mass/Vol] 14.2 g/dL Normal 12.0-15.0 [facility] Comment on above: Performed By: #### L 500.4050, L100.0100, L501.5200, L506.1000, L503.0105, L503.6030, L501.9520, L503.6550 #### [facility] [address] [place], [address] IG% 0.400 Normal 0.0-0.9 [facility] Comment on above: Result Comment: IG% - Immature Granulocytes (promyelocytes, myelocytes and metamyelocytes) > 1% indicates that a LEFT SHIFT is Present. Performed By: #### L 500.4050, L100.0100, L501.5200, L506.1000, L503.0105, L503.6030, L501.9520, L503.6550 #### [facility] [address] [place], [address] Lymphocytes/100 WBC (Bld) 22.4 % Normal 19-41 [facility] Comment on above: Performed By: #### L 500.4050, L100.0100, L501.5200, L506.1000, L503.0105, L503.6030, L501.9520, L503.6550 #### [facility] [address] [place], [address] MCH (RBC) [Entitic mass] 31.6 pg Normal 27.0-32.0 [facility] Comment on above: Performed By: #### L 500.4050, L100.0100, L501.5200, L506.1000, L503.0105, L503.6030, L501.9520, L503.6550 #### [facility] [address] [place], [address] MCHC (RBC) [Mass/Vol] 32.9 g/dL Normal 32-36 [facility] Comment on above: Performed By: #### L 500.4050, L100.0100, L501.5200, L506.1000, L503.0105, L503.6030, L501.9520, L503.6550 #### [facility] [address] [place], [address] MCV (RBC) [Entitic vol] 96.2 fL Normal 81-99 [facility] Comment on above: Performed By: #### L 500.4050, L100.0100, L501.5200, L506.1000, L503.0105, L503.6030, L501.9520, L503.6550 #### [facility] [address] [place], [address] Monocytes/100 WBC (Bld) 12.5 % High 0-10 [facility] Comment on above: Performed By: #### L 500.4050, L100.0100, L501.5200, L506.1000, L503.0105, L503.6030, L501.9520, L503.6550 #### [facility] [address] [place], [address] Neutrophils/100 WBC (Bld) 62.0 % Normal 47-70 [facility] Comment on above: Performed By: #### L 500.4050, L100.0100, L501.5200, L506.1000, L503.0105, L503.6030, L501.9520, L503.6550 #### [facility] [address] [place], [address] Nucleated RBC (Bld) [#/Vol] 0 10*3/uL Normal 0-5 [facility] Comment on above: Performed By: #### L 500.4050, L100.0100, L501.5200, L506.1000, L503.0105, L503.6030, L501.9520, L503.6550 #### [facility] [address] [place], [address] Platelet mean volume (Bld) [Entitic vol] 12.7 fL High 6.2-12.0 [facility] Comment on above: Performed By: #### L 500.4050, L100.0100, L501.5200, L506.1000, L503.0105, L503.6030, L501.9520, L503.6550 #### [facility] [address] [place], [address] Platelets (Bld) [#/Vol] 233 10*3/uL Normal 150-450 [facility] Comment on above: Performed By: #### L 500.4050, L100.0100, L501.5200, L506.1000, L503.0105, L503.6030, L501.9520, L503.6550 #### [facility] [address] [place], [address] RBC (Bld) [#/Vol] 4.49 10*6/uL Normal 4.2-5.4 [facility] Comment on above: Performed By: #### L 500.4050, L100.0100, L501.5200, L506.1000, L503.0105, L503.6030, L501.9520, L503.6550 #### [facility] [address] [place], [place], [id number] (382) RDW SD 42.5 fl Normal 35.1-43.9 [facility] Comment on above: Performed By: #### L 500.4050, L100.0100, L501.5200, L506.1000, L503.0105, L503.6030, L501.9520, L503.6550 #### [facility] [address] [place], [place], [id number] WBC (Bld) [#/Vol] 5.7 10*3/uL Normal 4.4-11.0 [facility] Comment on above: Performed By: #### L 500.4050, L100.0100, L501.5200, L506.1000, L503.0105, L503.6030, L501.9520, L503.6550 #### [facility] [address] [place], [place], [id number] Comprehensive Metabolic Prof [facility] 11-05-2024 Albumin [Mass/Vol] 3.9 g/dL Normal 3.2-5.0 [facility] Comment on above: Performed By: #### L 500.4050, L100.0100, L501.5200, L506.1000, L503.0105, L503.6030, L501.9520, L503.6550 #### [facility] [address] [place], [address] Albumin/Globulin [Mass ratio] 1.1 {ratio} Normal 0.9-2.4 [facility] Comment on above: Performed By: #### L 500.4050, L100.0100, L501.5200, L506.1000, L503.0105, L503.6030, L501.9520, L503.6550 #### [facility] [address] [place], [address] ALK P 35 U/L Low 45-117 [facility] Comment on above: Performed By: #### L 500.4050, L100.0100, L501.5200, L506.1000, L503.0105, L503.6030, L501.9520, L503.6550 #### [facility] [address] [place], [address] ALT [Catalytic activity/Vol] 19 U/L Normal 13-56 [facility] Comment on above: Performed By: #### L 500.4050, L100.0100, L501.5200, L506.1000, L503.0105, L503.6030, L501.9520, L503.6550 #### [facility] [address] [place], [address] AST [Catalytic activity/Vol] 14 U/L Low 15-37 [facility] Comment on above: Performed By: #### L 500.4050, L100.0100, L501.5200, L506.1000, L503.0105, L503.6030, L501.9520, L503.6550 #### [facility] [address] [place], [address] Bilirubin [Mass/Vol] 1.00 mg/dL Normal 0.20-1.00 [facility] Comment on above: Result Comment: For patients on eltrombopag therapy, use of Dimension [place] TBIL is not recommended. Performed By: #### L 500.4050, L100.0100, L501.5200, L506.1000, L503.0105, L503.6030, L501.9520, L503.6550 #### [facility] [address] [place], [address] BUN/CRE 14.8 RATIO Normal 10-20 [facility] Comment on above: Performed By: #### L 500.4050, L100.0100, L501.5200, L506.1000, L503.0105, L503.6030, L501.9520, L503.6550 #### [facility] [address] [place], [address] CA,Total 8.8 mg/dL Normal 8.5-10.1 [facility] Comment on above: Performed By: #### L 500.4050, L100.0100, L501.5200, L506.1000, L503.0105, L503.6030, L501.9520, L503.6550 #### [facility] [address] [place], [address] Chloride [Moles/Vol] 107 mmol/L Normal 98-107 [facility] Comment on above: Performed By: #### L 500.4050, L100.0100, L501.5200, L506.1000, L503.0105, L503.6030, L501.9520, L503.6550 #### [facility] [address] [place], [address] CO2 [Moles/Vol] 25.0 mmol/L Normal 21.0-32.0 [facility] Comment on above: Performed By: #### L 500.4050, L100.0100, L501.5200, L506.1000, L503.0105, L503.6030, L501.9520, L503.6550 #### [facility] [address] [place], [address] Creatinine [Mass/Vol] 0.68 mg/dL Normal 0.55-1.02 [facility] Comment on above: Result Comment: The validity of the calculated GFR GFRAA in patients over 70 years has not been determined. Clinical correlation is essential. Performed By: #### L 500.4050, L100.0100, L501.5200, L506.1000, L503.0105, L503.6030, L501.9520, L503.6550 #### [facility] [address] [place], [address] EST GFR - AA 121 mL/min Normal >60 [facility] Comment on above: Result Comment: Afri can [place] GFR Calc Performed By: #### L 500.4050, L100.0100, L501.5200, L506.1000, L503.0105, L503.6030, L501.9520, L503.6550 #### [facility] [address] [place], [address] GAP 6 Normal 5-15 [facility] Comment on above: Performed By: #### L 500.4050, L100.0100, L501.5200, L506.1000, L503.0105, L503.6030, L501.9520, L503.6550 #### [facility] [address] [place], [address] GFR/1.73 sq M.predicted among non-blacks MDRD (S/P/Bld) [Vol rate/Area] 100 mL/min/{1.73_m2} Normal >60 [facility] Comment on above: Result Comment: Non- GFR Calc Performed By: #### L 500.4050, L100.0100, L501.5200, L506.1000, L503.0105, L503.6030, L501.9520, L503.6550 #### [facility] [address] [place], [address] Globulin (S) [Mass/Vol] 3.6 g/dL Normal 2.2-4.2 [facility] Comment on above: Performed By: #### L 500.4050, L100.0100, L501.5200, L506.1000, L503.0105, L503.6030, L501.9520, L503.6550 #### [facility] [address] [place], [address] Glucose [Mass/Vol] 88 mg/dL Normal 74-106 [facility] Comment on above: Performed By: #### L 500.4050, L100.0100, L501.5200, L506.1000, L503.0105, L503.6030, L501.9520, L503.6550 #### [facility] [address] [place], [address] Potassium [Moles/Vol] 4.2 mmol/L Normal 3.5-5.1 [facility] Comment on above: Performed By: #### L 500.4050, L100.0100, L501.5200, L506.1000, L503.0105, L503.6030, L501.9520, L503.6550 #### [facility] [address] [place], [address] Sodium [Moles/Vol] 138 mmol/L Normal 136-145 [facility] Comment on above: Performed By: #### L 500.4050, L100.0100, L501.5200, L506.1000, L503.0105, L503.6030, L501.9520, L503.6550 #### [facility] [address] [place], [address] T PROT 7.5 g/dL Normal 6.4-8.2 [facility] Comment on above: Performed By: #### L 500.4050, L100.0100, L501.5200, L506.1000, L503.0105, L503.6030, L501.9520, L503.6550 #### [facility] [address] [place], [address] Urea nitrogen [Mass/Vol] 10 mg/dL Normal 7-18 [facility] Comment on above: Performed By: #### L 500.4050, L100.0100, L501.5200, L506.1000, L503.0105, L503.6030, L501.9520, L503.6550 #### [facility] [address] [place], [address] Ferritinon 11-05-2024 Ferritin [Mass/Vol] 48 ng/mL Normal 8-252 [facility] Comment on above: Performed By: #### L 500.4050, L100.0100, L501.5200, L506.1000, L503.0105, L503.6030, L501.9520, L503.6550 #### [facility] [address] [place], [place], [id number] (959) Iron+Iron Binding Capacityon 11-05-2024 Iron [Mass/Vol] 107 ug/dL Normal 50-170 [facility] Comment on above: Performed By: #### L 500.4050, L100.0100, L501.5200, L506.1000, L503.0105, L503.6030, L501.9520, L503.6550 #### [facility] [address] [place], [place], [phone] (706) IRON SATURATION 39.2 Normal 15.0-55.0 [facility] Comment on above: Performed By: #### L 500.4050, L100.0100, L501.5200, L506.1000, L503.0105, L503.6030, L501.9520, L503.6550 #### [facility] [address] [place], [address] TIBC 273 ug/dL Normal 250-450 [facility] Comment on above: Performed By: #### L 500.4050, L100.0100, L501.5200, L506.1000, L503.0105, L503.6030, L501.9520, L503.6550 #### [facility] [address] [place], [place], [id number] Magnesiumon 11-05-2024 Magnesium [Mass/Vol] 2.2 mg/dL Normal 1.6-2.6 [facility] Comment on above: Performed By: #### L 500.4050, L100.0100, L501.5200, L506.1000, L503.0105, L503.6030, L501.9520, L503.6550 #### [facility] [address] [place], [address] Thyroid Stim Hormone (TSH)on 11-05-2024 TSH 1.040 uIU/mL Normal 0.358-3.740 [facility] Comment on above: Performed By: #### L 500.4050, L100.0100, L501.5200, L506.1000, L503.0105, L503.6030, L501.9520, L503.6550 #### [facility] [address] [place], [place], [id number] Vitamin B12on 11-05-2024 Cobalamin (Vitamin B12) [Mass/Vol] 789 pg/mL Normal 211-911 [facility] Comment on above: Performed By: #### L 500.4050, L100.0100, L501.5200, L506.1000, L503.0105, L503.6030, L501.9520, L503.6550 #### [facility] [address] [place], [address] Vitamin D,25 Hydroxyon 11-05 Vitamin D 25-OH 49.8 ng/mL Normal [facility] Comment on above: Result Comment: Chey min D 25(OH) Status Range Deficiency <20 ng/mL (50nmol/L) Insufficiency 20 - 30 ng/mL (50 - 75 nmol/L) Sufficiency 30 - 100 ng/mL (75 - 250 nmol/L) Toxicity >100 ng/mL (>250 nmol/L) Performed By: #### L 500.4050, L100.0100, L501.5200, L506.1000, L503.0105, L503.6030, L501.9520, L503.6550 #### [facility] [place], [address] Internal Medicine Office Vis iton 11-04-2024 Internal Medicine Office Visit [facility] [address] [place] [address] [place] [address] OFFICE VISIT Date of Service: 11/05/24 MR#: [id number] Acct: [id number] Name: MARTI MORGAN Rep #: [id number] : 1980 Provider: Dr. Vanessa ott MD Age/Sex: 43/F [place] [facility] Status: Signed Intake Vital Signs 03/12/24 08:24 11/05/24 07:33 Height 5 ft 6 in 5 ft 6 in Weight: 143 lb BMI 23.1 BP 116/70 Blood Pressure Location Lt brachial Position Sitting Respiration 16 Pulse 69 Pulse Source Monitor Temp 97.5 F L Temp Source Temporal Pulse Oximetry (%) 99 Oxygen Delivery Method room air Intake Visit Reasons: THYROID MED - SLEEP ISSUES Chief Complaint: thyroid and sleep issues Area Field Worker Required: No Accompanied by: Self Is patient in pain?: No Allergies amoxicillin Allergy (Mild, Verified 11/05/24 07:30) hives Medications ???Medication ???Instructions ???Recorded ???Confirmed ???Type hydrocortisone 1 % topical cream 1 applic topical TID PRN 04/17/23 11/05/24 History (Cortisone (hydrocortisone)) levonorgestrel (Mirena) 1 device intrauterine ONCE 04/17/23 11/05/24 History sumatriptan succinate 50 mg tablet 50 mg PO .prn #20 tabs 03/12/24 11/05/24 Rx eszopiclone 1 mg tablet (Lunesta) 1 mg PO QHS #14 tabs 11/05/24 11/05/24 Rx levothyroxine 175 mcg tablet 175 mcg PO DAILY #90 tabs 11/05/24 11/05/24 Rx PFSH Medical History IUD (intrauterine device) in place History of breast lump Coccyx pain Goiter Migraine GERD (gastroesophageal reflux disease) Thyroid disease Surgical History History of colposcopy H/O LEEP History of delivery Family History Mother Asthma Sister Breast cancer Thyroid disorder Grandfather Brain cancer Father Heart disease Brother Multiple sclerosis Thyroid disorder Sister Thyroid disorder Social History adopted: No household members: spouse and children number of children: 1 current occupational status: employed current occupation: controller for [employer] pets and animals: Yes (1) pets and animals: dog(s) sexually active: Yes Smoking Status: Former smoker quit date: 10/22/05 Tobacco: How many years used: 1 Electronic Cigarette Use: not used alcohol intake: current alcohol intake frequency: a few times a week substance use type: does not use caffeine: Yes (2) Type: coffee what type of physical activity do you participate in: none frequency: 1-2 times per week do you feel safe at home: Yes 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 She is up to date on her routine blood work and screening. She isn't due for any immunizations. She doesn't smoke and does need refills. She reports she is eating healthy and staying active using her elliptical. She takes her synthroid first thing in the morning before anything else. She denies any problems with it and reports her dose has been stable. Her last TSH was in normal range. The patient has a history of migraines. She reports with the IUD in place, they have been better. She states they are mostly well controlled. She reports she usually takes 1/2 of the imitrex each time. She reports she will get it usually 1-2 times a month. She reports it does help. At her last office visit, she reported an intermittent 'zapping' sensation over her left eyebrow which had been going on for a couple of months. She reports that it did resolve. The patient has concerns about her sleep. She reports she was having it for 1-2 nights a week for the last several months, but thinks it has worsened. She reports she doesn't feel stressed, but feels like her body doesn't shut down. She reports when she is awake, she is thinking about a lot of things. She has tried melatonin, benadryl and magnesium without any improvement. She has also tried lavender, chamomile and aromatherapy sprays. She reports she has trouble with falling asleep. She states she doesn't usually have trouble staying asleep. She sleeps in a dark, quiet room. She tries to go to bed and gets up at the same time every night, overall, but admits she does sometimes fall asleep on the couch before bed. She reports she does watch television before bed, but tries to avoid using her phone after dinner. She denies snoring. She states she doesn't necessarily feel tired throughout the day. She denies any naps during the day. She has limited her caffeine intake to just a morning cup. She doesn't feel that she is having trouble with her mental health. She denies the s (more content not included)... Normal [facility] Cervical or vaginal specimen microscopic examination by liquid based cytology (reportOrdered By: Shavon Duran on 12-31-2023 Cytology report Cyto stain.thin prep Doc (Cvx/Vag) Comment . [facility] Comment on above: Criteria not met, HP V Genotype not performed.Performed at: [facility] [address] [place], [place] [id number] Director: Harman Neil MD, Phone: [phone] at: [address] [id number] Director: Dulce Rodrigues MD, Phone: [phone] at: [address] [id number] Director: Dulce Rodrigues MD, Phone: [phone] Cervical or vagninal specime n microscopic examination by cytology stain (reported asOrdered By: Shavon Duran on 12-31-2023 Cytology report Cyto stain Doc (Cvx/Vag) Comment . [facility] Comment on above: The Pap smear is a s creening test designed to aid in thedetection of premalignant and malignant conditions of theuterine cervix. It is not a diagnostic procedure andshould not be used as the sole means of detecting cervicalcancer. Both false-positive and false-negative reports dooccur. Detection in cervical specim en of any of human papilloma virus (HPV) 16, 18, 31, 33,Ordered By: Shavon Duran on 12-31-2023 HPV 16+18+31+33+35+39+45+ 51+52+56+58+59+66+68 DNA Probe+sig amp Ql (Cvx) Negative Negative [facility] Comment on above: This nucleic acid am plification test detects fourteen high- risk HPV types (16,18,31,33,35,39,45,51,52,56,58,59,66,68)without differentiation. Laboratory - CytologyOrdered By: Shavon Duran on 12-31-2023 Drawing Tender Cyto stain Nom (Cvx/Vag) [ID] Comment . [facility] Comment on above: Amairani Knight Cytote chnologist (ASCP) Laboratory - Miscellaneous t estsOrdered By: Shavon Duran on 12-31-2023 Service comment (Unsp spec) [Interp] . . [facility] Thin prep Papanicolaou smear with manual screeningOrdered By: Shavon Duran on 12-31-2023 Thin prep Papanicolaou smear with manual screening Comment . [facility] Comment on above: NEGATIVE FOR INTRAEP ITHELIAL LESION OR MALIGNANCY. This liquid based Th inPrep(R) pap test was screened withthe use of an image guided system. COMPREHENSIVE PANELon 2022 Albumin [Mass/Vol] 4.0 g/dL Normal 3.4 - 5.0 [facility] Comment on above: Performed By: #### C MP #### [address] [address] ALP [Catalytic activity/Vol] 25 U/L Low 33 - 110 [facility] Comment on above: Performed By: #### C MP #### [address] [address] ALT [Catalytic activity/Vol] 10 U/L Normal 7 - 45 [facility] Comment on above: Result Comment: Mahnaz ents treated with Sulfasalazine may generate falsely decreased results for ALT. Performed By: #### C MP #### [address] [address] Anion gap [Moles/Vol] 9 mmol/L Low 10 - 20 [facility] Comment on above: Performed By: #### C MP #### [address] [address] AST [Catalytic activity/Vol] 14 U/L Normal 9 - 39 [facility] Comment on above: Performed By: #### C MP #### [address] [address] Bilirubin [Mass/Vol] 0.9 mg/dL Normal 0.0 - 1.2 [facility] Comment on above: Performed By: #### C MP #### [address] [address] Calcium [Mass/Vol] 8.5 mg/dL Low 8.6 - 10.3 [facility] Comment on above: Performed By: #### C MP #### [address] [address] Chloride [Moles/Vol] 106 mmol/L Normal 98 - 107 [facility] Comment on above: Performed By: #### C MP #### [address] [address] Creatinine [Mass/Vol] 0.60 mg/dL Normal 0.50 - 1.05 [facility] Comment on above: Performed By: #### C MP #### [address] [address] eGFR FEMALE >90 Normal >90 [facility] Comment on above: Result Comment: CALC ULATIONS OF ESTIMATED GFR ARE PERFORMED USING THE 2020 CKD-EPI STUDY REFIT EQUATION WITHOUT THE RACE VARIABLE FOR THE IDMS-TRACEABLE CREATININE METHODS. https://jasn.asnjournals.org/content//ASN.457717 8145 Performed By: #### C MP #### [address] [address] Glucose [Mass/Vol] 80 mg/dL Normal 74 - 99 [facility] Comment on above: Performed By: #### C MP #### [address] [address] HCO3 (Bld) [Moles/Vol] 26 mmol/L Normal 21 - 32 [facility] Comment on above: Performed By: #### C MP #### [address] [address] Potassium [Moles/Vol] 3.5 mmol/L Normal 3.5 - 5.3 [facility] Comment on above: Performed By: #### C MP #### [address] [address] Protein [Mass/Vol] 6.8 g/dL Normal 6.4 - 8.2 [facility] Comment on above: Performed By: #### C MP #### [address] [address] Sodium [Moles/Vol] 137 mmol/L Normal 136 - 145 [facility] Comment on above: Performed By: #### C MP #### [address] [address] Urea nitrogen [Mass/Vol] 8 mg/dL Normal 6 - 23 [facility] Comment on above: Performed By: #### C MP #### [address] [address] LIPID PANEL (CORONARY RISK 2 )on 02-27-2023 Cholesterol [Mass/Vol] 112 mg/dL Normal 0 - 199 [facility] Comment on above: Result Comment: . AGE DESIRABLE BORDERLINE HIGH HIGH 0-19 Y 0 - 169 170 - 199 >/= 200 20-24 Y 0 - 189 190 - 224 >/= 225 >24 Y 0 - 199 200 - 239 >/= 240 All ranges are based on fasting samples. Specific therapeutic targets will vary based on patient-specific cardiac risk. . Pediatric guidelines reference:Pediatrics 2011, 128(S5). Adult guidelines reference: NCEP ATPIII Guidelines, CATIE 2001, 258:2486-97 . Venipuncture immediately after or during the administration of Metamizole may lead to falsely low results. Testing should be performed immediately prior to Metamizole dosing. Performed By: #### L IPID #### [address] [address] Cholesterol in HDL [Mass/Vol] 52.0 mg/dL Normal [facility] Comment on above: Result Comment: . AGE VERY LOW LOW NORMAL HIGH 0-19 Y < 35 < 40 40-45 ---- 20-24 Y ---- < 40 >45 ---- >24 Y ---- < 40 40-60 >60 . Performed By: #### L IPID #### [address] [address] Cholesterol in LDL [Mass/Vol] 54 mg/dL Normal 0 - 99 [facility] Comment on above: Result Comment: . NEAR BORD AGE DESIRABLE OPTIMAL HIGH HIGH VERY HIGH 0-19 Y 0 - 109 --- 110-129 >/= 130 ---- 20-24 Y 0 - 119 --- 120-159 >/= 160 ---- >24 Y 0 - 99 100-129 130-159 160-189 >/=190 . Performed By: #### L IPID #### [address] [address] Cholesterol in VLDL [Mass/Vol] 6 mg/dL Normal 0 - 40 [facility] Comment on above: Performed By: #### L IPID #### [address] [address] Cholesterol.total/Cho lesterol in HDL [Mass ratio] 2.2 {ratio} Normal [facility] Comment on above: Result Comment: REF VALUES DESIRABLE < 3.4 HIGH RISK > 5.0 Performed By: #### L IPID #### [address] [address] Triglyceride [Mass/Vol] 29 mg/dL Critically low 0 - 149 [facility] Comment on above: Result Comment: . AGE DESIRABLE BORDERLINE HIGH HIGH VERY HIGH 0 D-90 D 19 - 174 ---- ---- ---- 91 D- 9 Y 0 - 74 75 - 99 >/= 100 ---- 10-19 Y 0 - 89 90 - 129 >/= 130 ---- 20-24 Y 0 - 114 115 - 149 >/= 150 ---- >24 Y 0 - 149 150 - 199 200- 499 >/= 500 . Venipuncture immediately after or during the administration of Metamizole may lead to falsely low results. Testing should be performed immediately prior to Metamizole dosing. Performed By: #### L IPID #### [place] [id number] THYROXINE,FREEon 02-27-2023 THYROXINE,FREE 1.20 ng/dL High 0.61 - 1.12 [facility] Comment on above: Result Comment: Thyr oxine Free testing is performed using different testing methodology at [facility] than at other [facility]. Direct result comparisons should only be made within the same method. . Biotin can cause falsely elevated free T4 results. Patients taking a Biotin dose of up to 10 mg/day should refrain from taking Biotin for 24 hours before sample collection. Patient taking a Biotin dose of >10 mg/day should consult with their physician or the laboratory before the blood draw. Performed By: #### T 4FRE #### [place] [address] TSHon 02-27-2023 TSH Qn 1.53 m[IU]/L Normal 0.44 - 3.98 [facility] Comment on above: Result Comment: TSH testing is performed using different testing methodology at [facility] than at other [facility]. Direct result comparisons should only be made within the same method. Performed By: #### T SH2 #### [address] [address] AMIE DIAG W NICK LTon 12-20-2 023 [facility] Vital Signs Date Time Vital Sign Value Performing Clinician Archie cha 05-22-2025 13:35-0400 Body height 167.[address] Vanessa Chandler MD Work Phone: [facility] 05-22-2025 13:35-0400 Body mass index (BMI) [Ratio] 21.9 kg/m2 Dr. Vanessa Chandler MD Work Phone: [facility] 05-22-2025 13:35-0400 Body temperature 97.7 [degF] Dr. Vanessa Chandler MD Work Phone: [facility] 05-22-2025 13:35-0400 Body weight 61.[address] Vanessa Chandler MD Work Phone: [facility] 05-22-2025 13:35-0400 Diastolic blood pressure 80 mm[Hg] Dr. Vanessa Chandler MD Work Phone: [facility] 05-22-2025 13:35-0400 Heart rate 66 /min Dr. Vanessa Chandler MD Work Phone: [facility] 05-22-2025 13:35-0400 Respiratory rate 16 /min Dr. Vanessa Chandler MD Work Phone: [facility] 05-22-2025 13:35-0400 SaO2% (BldA) [Mass fraction] 100 % Dr. Vanessa Chandler MD Work Phone: [facility] 05-22-2025 13:35-0400 Systolic blood pressure 126 mm[Hg] Dr. Vanessa Chandler MD Work Phone: [facility] 12-31-2023 11:54-0400 Body height 167.[address] Deonte Hanson Work Phone: [facility] 12-31-2023 11:44-0400 Body mass index (BMI) [Ratio] 21.9 kg/m2 Dr. Deonte Hanson Work Phone: [facility] 12-31-2023 11:44-0400 Body weight 61.[address] Deonte Hanson Work Phone: [facility] 12-31-2023 11:44-0400 Diastolic blood pressure 74 mm[Hg] Dr. Deonte Hanson Work Phone: [facility] 12-31-2023 11:44-0400 Systolic blood pressure 116 mm[Hg] Dr. Deonte Hanson Work Phone: [facility] 10-11-2022 07:48-0500 Body weight 64.86 kg Slimeyonatan Ortegaf MANAGER AMBULATORY.BEHAVIOR SUPPORT SPECIALIST Work Phone: [facility] 10-11-2022 07:48-0500 Diastolic blood pressure 68 mm[Hg] Slime Floreshof MANAGER AMBULATORY.BEHAVIOR SUPPORT SPECIALIST Work Phone: [facility] 10-11-2022 07:48-0500 Heart rate 70 /min Slimeyonatan Floreshof MANAGER AMBULATORY.BEHAVIOR SUPPORT SPECIALIST Work Phone: [facility] 10-11-2022 07:48-0500 Respiratory rate 16 /min Slimeyonatan Floreshof MANAGER AMBULATORY.BEHAVIOR SUPPORT SPECIALIST Work Phone: [facility] 10-11-2022 07:48-0500 SaO2% (BldA) [Mass fraction] 100 % Slimeyonatan Floreshof MANAGER AMBULATORY.BEHAVIOR SUPPORT SPECIALIST Work Phone: [facility] 10-11-2022 07:48-0500 Systolic blood pressure 120 mm[Hg] Slime Floreshof MANAGER AMBULATORY.BEHAVIOR SUPPORT SPECIALIST Work Phone: [facility] Encounters Encounter Date Encounter Type Care Provider Facility Start: 05-22-2025 End: 05-22-2025 Patient encounter procedure Myke CATALAN -[facility] Work Phone: Start: 05-22-2025 End: 05-22-[address] Vanessa Chandler MD Work Phone: -[facility] Start: 12-09-2024 End: 01-09-2025 ambulatory Deonte Hanson MD Work Phone: [facility] [place] Start: 11-05-2024 End: 11-05-2024 ambulatory Vanessa Chandler [place]: 11-05-2024 End: 11-05-2024 ambulatory Vanessa Chandler Facility:[facility] Start: 01-09-2024 End: 01-09-[address] Deonte Hanson Work Phone: [facility] Work Phone: Start: 01-09-2024 End: 01-09-[address] Deonte Hanson Work Phone: [facility]Outpatient Breast Imaging Work Phone: Start: 01-02-2024 ambulatory Deonte crouch MD Work Phone: [facility] [place] Start: 12-31-2023 End: 12-31-[address] Deonte Hanson Work Phone: [facility] Work Phone: Start: 12-31-2023 End: 12-31-[address] Deonte Hanson Work Phone: [facility]-Laboratory, Specimen Work Phone: Start: 12-31-2023 End: 12-31-[address] Deonte Hanson Work Phone: [facility] Work Phone: Start: 06-21-2023 ambulatory Sasha Rodriguez MD Work Phone: OB/Gynecology Comment on above: Network variance Start: 02-27-2023 Telephone encounter Deonte chicas MD Work Phone: [facility] [place] Comment on above: Lab Orders Start: 12-31-2022 ambulatory Deonte crouch MD Work Phone: [facility] [place] Comment on above: Prescription renewal s Start: 12-25-2022 Telephone encounter Deonte chicas MD Work Phone: [facility] [place] Comment on above: Forms Start: 12-20-2022 End: 12-20-2022 Subsequent hospital visit by physician Diagnostic Mammo [facility] Start: 12-06-2022 Telephone encounter Susan Jerry MD Work Phone: Mammography Comment on above: Mammogram Result Luis Felipe l Back Start: 12-01-2022 Telephone encounter Deonte chicas MD Work Phone: [facility] [place] Comment on above: Results Start: 11-30-2022 Documentation procedure Mammog donnell Coordinator [facility] Start: 11-30-2022 Letter encounter Mammography Coordinator [facility] Department Start: 10-11-2022 End: 10-11-2022 Patient encounter procedure Slime Law MANAGER AMBULATORY.BEHAVIOR SUPPORT SPECIALIST Work Phone: [facility] [place] Comment on above: Contact dermatitis, unspecified contact dermatitis type, unspecified trigger (Primary Dx) Start: 07-12-2022 ambulatory Deonte crouch MD Work Phone: [facility] [place] Start: 01-17-2022 Image Encounter Teo hadley MD Work Phone: zz DO NOT USE - [facility] Only Procedures Date Procedure Procedure Detail Performing Clinician Start: 01-09-[address] Deonte rothman Work Phone: Start: 12-20-2022 Digital breast tomosynthesis unilateral Deonte Hanson MD Work Phone: Start: 11-30-2022 Mammography Deonte Hanson MD Work Phone: Start: 06-09-2021 Mammography Deonte Hanson MD Work Phone: Start: 05-11-2020 Adult depression screening assessment Deonte Hanson MD Work Phone: Start: 11-25-2016 Lipid 1996 panel - Serum or Plasma Deonte Hanson MD Work Phone: Start: 06-11-2012 History of radiation therapy H/O radioactive iodine thyroid ablation Deonte Hanson MD Work Phone: Plan of Treatment Date Care Activity Detail Author Start: 05-14-2025 HPV TESTING HPV TESTING [facility] Start: 05-14-2025 Screening for malign ant neoplasm of cervix HPV Testing [facility] Start: 12-22-2024 Diabetes Screening Diabetes Screenin g [facility] Start: 12-22-2024 Lipid panel Lipid Screening [facility] Start: 12-22-2024 Screening for malign ant neoplasm of colon [facility] Start: 06-22-2024 Covid-19 Vaccine ( season) Covid-19 Vaccine () [facility] Start: 06-22-2024 Influenza vaccination Influenza Vacc ine (#1) [facility] Start: 11-30-2023 Mammography [facility] Start: 11-30-2023 Screening for malign ant neoplasm of breast Mammogram Screening [facility] Start: 10-22-2023 Depression Assessment Depression Ass essment [facility] Start: 10-11-2023 ANNUAL PCP TEAM CORE JAVA ENGINEER MOLLY DISEASE VISIT ANNUAL PCP TEAM CHRONIC DISEASE VISIT [facility] Start: 06-22-2023 Covid-19 Vaccine () Covid-19 Vaccine () [facility] Start: 06-22-2023 Influenza vaccination [facility] Start: 01-01-2023 End: 03-03-2023 Comprehensive metabolic 2000 panel - Serum or Plasma COMP METABOLIC PANEL Lab Routine Other specified hypothyroidism Expected: 01/01/2023, Expires: 03/03/2023 [facility] Work Phone: Comment on above: Expected: 01/01/2023 , Expires: 03/03/2023 Start: 01-01-2023 End: 03-03-2023 Lipid 1996 panel - Serum or Plasma LIPID PANEL BASIC Lab Routine Other specified hypothyroidism Expected: 01/01/2023, Expires: 03/03/2023 [facility] Work Phone: Comment on above: Expected: 01/01/2023 , Expires: 03/03/2023 Start: 01-01-2023 End: 03-03-2023 Thyrotropin [Units/volume] in Serum or Plasma TSH BLD Lab Routine Other specified hypothyroidism Expected: 01/01/2023, Expires: 03/03/2023 [facility] Work Phone: Comment on above: Expected: 01/01/2023 , Expires: 03/03/2023 Start: 01-01-2023 End: 03-03-2023 Thyroxine (T4) free [Mass/volume] in Serum or Plasma T4 FREE/FREE THYROX Lab Routine Other specified hypothyroidism Expected: 01/01/2023, Expires: 03/03/2023 [facility] Work Phone: Comment on above: Expected: 01/01/2023 , Expires: 03/03/2023 Start: 10-22-2022 DEPRESSION ASSESSMENT DEPRESSION ASS ESSMENT [facility] Start: 06-22-2022 Influenza vaccination INFLUENZA (#1) [facility] Start: 06-09-2022 Mammography MAMMOGRAM [facility] Start: 05-19-2022 ANNUAL PCP TEAM CORE JAVA ENGINEER MOLLY DISEASE VISIT ANNUAL PCP TEAM CHRONIC DISEASE VISIT [facility] Start: 10-22-2021 DEPRESSION ASSESSMENT DEPRESSION ASS ESSMENT [facility] Start: 05-14-2021 PAP TESTING PAP TESTING [facility] Start: 05-14-2021 Screening for malign ant neoplasm of cervix [facility] Start: 05-11-2021 Adult depression screening assessment DEPRESSION SCREENING [facility] Start: 03-24-2021 COVID-19 VACCINE (3 - Booster for Moderna series) COVID-19 VACCINE (3 - Booster for Moderna series) [facility] Start: 03-24-2021 COVID-19 VACCINE (3 - Moderna series) COVID-19 VACCINE (3 - Moderna series) [facility] Start: 06-16-2018 Urine microalbumin profile [facility] Start: 12-22-1998 Hepatitis B Vaccine (1 of 3 - 19+ 3-dose series) Hepatitis B Vaccine (1 of 3 - 19+ 3-dose series) [facility] Start: 12-22-1997 Anxiety Screening Anxiety Screening [facility] Start: 12-22-1997 Depression Screening Depression Scre ening [facility] Start: 12-22-1997 HIV SCREENING HIV SCREENING [facility] Start: 12-22-1997 HIV screening HIV Screening [facility] Start: 1980 HEPATITIS B (1 of 3 - 3-dose series) HEPATITIS B (1 of 3 - 3-dose series) [facility] Start: 1980 Hepatitis B Vaccine (1 of 3 - 3-dose series) Hepatitis B Vaccine (1 of 3 - 3-dose series) [facility] End: 01-31-2025 DBT Breast - bilateral screening AMIE SCREENING W NICK Radiology Routine Encounter for screening mammogram for breast cancer 1 Occurrences starting 01/02/2024 until 01/31/2025 [facility] Work Phone: Comment on above: 1 Occurrences starti ng 01/02/2024 until 01/31/2025 End: 01-08-2026 DBT Breast - bilateral screening AMIE SCREENING W NICK Radiology Routine Encounter for screening mammogram for breast cancer 1 Occurrences starting 12/09/2024 until 01/08/2026 [facility] Work Phone: Comment on above: 1 Occurrences starti ng 12/09/2024 until 01/08/2026 End: 12-31-2023 Diagnostic mammography computer-aided detcj uni AMIE DIAGNOSTIC LT Radiology Routine Abnormal mammogram 1 Occurrences starting 12/01/2022 until 12/31/2023 [facility] Work Phone: Comment on above: 1 Occurrences starti ng 12/01/2022 until 12/31/2023 End: 08-11-2023 AMIE SCREENING W NICK AMIE SCREENING W NICK Radiology Routine Encounter for screening mammogram for breast cancer 1 Occurrences starting 07/12/2022 until 08/11/2023 [facility] Work Phone: Comment on above: 1 Occurrences starti ng 07/12/2022 until 08/11/2023 MG Breast - bilatera l Screening [facility] End: 12-31-2023 Us breast uni real time with image limited US BREAST LTD LT Radiology Routine Abnormal mammogram 1 Occurrences starting 12/01/2022 until 12/31/2023 [facility] Work Phone: Comment on above: 1 Occurrences starti ng 12/01/2022 until 12/31/2023 XR Chest PA and Lateral [facility] Immunizations Immunization Date Immunization Notes Care Provider [facility] 09-05-2023 influenza, injectabl e, quadrivalent, preservative free Dr. Vanessa Chandler MD Work Phone: [facility] 11-04-2021 Covid (Moderna) Dr. Deonte chicas Work Phone: [facility] 01-27-2021 COVID-19 original vaccine, full dose, monovalent (MODERNA) Deonte Hanson MD Work Phone: [facility] 12-31-2020 COVID-19 original vaccine, full dose, monovalent (MODERNA) Deonte Hanson MD Work Phone: [facility] 08-05-2019 influenza virus vaccine, unspecified formulation Diagnostic Wstr [facility] 07-31-2018 Influenza, injectabl e, Madin [place] Canine Kidney, preservative free, quadrivalent Dr. Deonte Hanson Work Phone: [facility] 07-13-2012 influenza virus vaccine, unspecified formulation Deonte Hanson MD Work Phone: [facility] Work Phone: 07-29-2011 influenza virus vaccine, unspecified formulation Deonte Hanson MD Work Phone: [facility] 11-19-2009 novel [id number], all formulations Deonte Hanson MD Work Phone: [facility] 06-16-2008 tetanus toxoid, reduced diphtheria toxoid, and acellular pertussis vaccine, adsorbed Deonte Hanson MD Work Phone: [facility] Work Phone: 05-30-1990 tetanus and diphther ia toxoids, adsorbed, preservative free, for adult use (2 Lf of tetanus toxoid and 2 Lf of diphtheria toxoid) Deonte Hanson MD Work Phone: [facility] Work Phone: Payers Date Payer Category Payer Self-pay 2024 Unknown [id number] 2022 Private Health Insurance ELLA MANLEY [id number] 2018 Unknown [id number] 2012 Unknown [id number] Unknown [id number] Unknown [id number] Unknown [id number] Social History Date Type Detail Facility Start: 06-21-2011 End: 05-22-2025 Tobacco smoking status NHIS Ex-smoker [facility] Work Phone: End: 09-05-2007 History of tobacco use Current smoker [facility] Work Phone: End: 09-05-2007 History of tobacco use Cigarette Smoker [facility] Work Phone: Start: 06-21-2011 End: 10-11-2022 Tobacco use and exposure Smokeless tobacco non-user [facility] Work Phone: Start: 06-09-2021 End: 10-11-2022 Alcohol intake Current drinker of alcohol (finding) [facility] Start: 05-14-2020 History SDOH Alcohol Frequency 4 [facility] Start: 05-11-2020 End: 05-14-2020 History SDOH Alcohol Std Drinks 1 [facility] Start: 06-12-2014 History SDOH Alcohol Comment Socially [facility] Start: 05-11-2020 End: 05-14-2020 History SDOH Social Connections Phone 2 [facility] Start: 05-11-2020 History SDOH Social Connections Meetings 98 [facility] Start: 05-11-2020 History SDOH Social Connections Living 3 [facility] Start: 05-14-2020 History SDOH Financial 5 [facility] Start: 05-11-2020 Education 17 [facility] Start: 1980 Sex Assigned At Not on file [facility] Start: 05-11-2020 End: 11-17-2022 History of Social function [place] [facility] Start: 05-11-2020 End: 11-17-2022 Social connection and isolation panel [facility] Do you belong to any clubs or organizations such as orthodox groups, unions, fraternal or athletic groups, or school groups? No [facility] How often do you att end meetings of the clubs or organizations you belong to? Patient refused [facility] Are you now , , , , never or living with a partner? [facility] How often to you hav e a drink containing alcohol? 2-3 time sa week [facility] How many standard dr inks containing alcohol do you have on a typical day? 1 or 2 [facility] How often do you hav e 6 or more drinks on 1 occasion? Never [facility] Do you feel stress - tense, restless, nervous, or anxious, or unable to sleep at night because your mind is troubled all the time - these days [OSQ] Only a little [facility] (I/We) worried raymond er (my/our) food would run out before (I/we) got money to buy more. Never true [facility] Start: 12-31-2023 Tobacco smoking stat NHIS Unknown if ever smoked [facility] Start: 1980 Sex Assigned At Female [facility] Functional Status Date Assessment Result Facility 12-26-2014 Are you deaf, or do you have serious difficulty hearing No 12/26/2014 8:20 AM Cecile Pedersen Ma No [facility] 12-26-2014 Are you blind, or do you have serious difficulty seeing, even when wearing glasses No 12/26/2014 8:20 AM Cecile Pedersen Ma No [facility] 12-26-2014 Do you have serious difficulty walking or climbing stairs No 12/26/2014 8:20 AM Cecile Pedersen Ma No [facility] 12-26-2014 Do you have difficul ty dressing or bathing No 12/26/2014 8:20 AM Cecile Pedersen Ma No [facility] 12-26-2014 Because of a physica l, mental, or emotional condition, do you have difficulty doing errands alone such as visiting a physician's office or shopping No 12/26/2014 8:20 AM Cecile Pedersen Ma Traci No [facility] Mental Status Date Assessment Result Facility 12-26-2014 Because of a physica l, mental, or emotional condition, do you have serious difficulty concentrating, remembering, or making decisions No 12/26/2014 8:20 AM Cecile Pedersen Ma No [facility] Clinical Notes 06-11-2012 to 12-09-2024 Telephone Encounter - Suzanne Resendiz LPN - 06/21/2023 2:24 PM EDTTelephone Encounter - Suzanne Resendiz LPN - 06/21/2023 2:04 PM EDTTelephone Encounter - Elisha Bone Ma - 01/01/2023 8:20 AM EDT Note Date & Type Note Facility 12-09-2024 Note Patient Outreach (FA MPWS) MARTI MORGAN ([id number]) 1980 F Date Time Provider Department 12/09/24 DEONTE HANSON During your visit today, we recorded the following information about you: Allergies As of Date: 12/09/2024 Noted Allergy Reaction AMOXICILLIN 12/31/2006 4 - Hives OMNICEF (CEFDINIR) 06/17/2007 4 - Hives TRIAMINIC COUGH (DEXTROMETHORPHAN)01/05/2006 5 - Intolerance Date Reviewed: 10/11/2022 Reviewed by: Slime Law APRN.BEHAVIOR SUPPORT SPECIALIST - Fully Assessed Visit Diagnosis:Encounter for screening mammogram for breast cancer [Z12.31] Order(s):AMIE SCREENING W NICK [[id number]] Order #: [id number] FUTURE Prescriptions as of 01/09/2025 - levothyroxine (SYNTHROID) 175 mcg tablet Take 1 tablet by mouth daily before breakfast. - SUMAtriptan (IMITREX) 50 mg tablet Take 1 tablet by mouth. START AT ONSET OF HEADACHE. MAY REPEAT DOSE AFTER 2 HOURS. - hydrocortisone (ANUSOL-HC) 2.5 % rectal cream 1 application by RECTAL route twice daily. - omeprazole (PRILOSEC) 20 mg capsule Take 1 capsule by mouth once daily. - levonorgestrel (MIRENA) 20 mcg/24 hours (6 yrs) 52 mg IUD 1 Each by INTRAUTERINE route as directed. - meloxicam (MOBIC) 15 mg tablet Take 1 tablet by mouth once daily. Take with food. Problem List As Of Date 12/09/2024 Noted Resolved COMMON MIGRAINE [346.1] 06/17/2007 06/16/2008 [...] thyroid ablation [Z92.3] 06/11/2012 Encounter Status:Closed by Vennli, PRODUSER on 01/09/25 [facility] 12-31-2023 Note [facility] Pap Smear Specimen Adequacy December 31, 2023 1:33pm Comment . Satisfactory for evaluation. Endocervical and/or squamous metaplasticcells (endocervical component) are present. Comment on above: Satisfactory for elham luation. Endocervical and/or squamous metaplasticcells (endocervical component) are present. 12-31-2023 Note [facility] Pap Smear Specimen Adequacy December 31, 2023 1:33pm Comment . Satisfactory for evaluation. Endocervical and/or squamous metaplasticcells (endocervical component) are present. Comment on above: Satisfactory for elham luation. Endocervical and/or squamous metaplasticcells (endocervical component) are present. 06-21-2023 Miscellaneous Notes Formattin g of this note might be different from the original. Form faxed to pt's insurance company. Suzanne Resendiz LPN Form printed and given to provider to complete. Suzanne Resendiz LPN I can't view the image for the file. documented in this encounter [facility] 02-27-2023 Miscellaneous Notes Formattin g of this note might be different from the original. Pt calls to request lab orders be faxed to [facility] @ [phone]. Orders faxed as requested. Syl Jennings LPN documented in this encounter [facility] 01-01-2023 Miscellaneous Notes Formattin g of this [...] Thyroid - 12/12/21 #90 w/3 Sumatriptan - / # 9 w/11. Pt has only been seen acutely for visit on 10/11/22. Last visit in 04/2021. No appt scheduled at this time. Pt needs appt. Elisha Bone Ma documented in this encounter [facility] 12-25-2022 Miscellaneous Notes Formattin g of this note might be different from the original. Office received fax from [employer] Request Form. This has been completed by pt an PCP and has been faxed back to [phone]. Elisha Bone Ma documented in this encounter [facility] 12-20-2022 History of Presen t illness [...] 2022 1:09 PM documented in this encounter [facility] 12-01-2022 Miscellaneous Notes Formattin g of this [...] Deonte Hanson MD documented in this encounter [facility] 11-30-2022 Miscellaneous Notes Formattin g of this note might be different from the original. December 01, 2022 PID: [id number] Marti M[address] C[address] [place] [address] Dear Ms. Morgan, Your recent breast imaging [...] who ordered/prescribed your screening mammogram: Please call [phone] or [phone]: [phone] to schedule an appointment for your additional [...] and reports are kept on file at [facility] as part of your permanent medical record, and are available for your continuing care. Thank you for allowing us to help in meeting your health care needs. Sincerely, Dr. Jerry Interpreting Radiologist [facility] (Additional imaging) documented in this encounter [facility] 10-11-2022 Instructions Slime Law APRN.BEHAVIOR SUPPORT SPECIALIST - 10/11/2022 8:07 AM EST May apply steroid ointment to back of head to rash Use steroid shampoo twice weekly. Recommend using fragrance free health and beauty products. Follow up as needed. documented in this encounter [facility] 10-11-2022 History of Presen t illness Narrative [...] 2006 COLPOSCOPY OF CERVIX 2008,06/2015,08/2016 EGD W/O [facility] SPECIMEN W/BX 01/26/11 INSERTION OF IUD 10/24/2010 [...] effects were discussed and patient voices understanding. Slime Law APRN.BEHAVIOR SUPPORT SPECIALIST This note was partially generated using [employer] voice recognition system. Note was reviewed for accuracy. There may be minor misspellings or grammar miscues with [employer] voice recognition. documented in this encounter [facility] 06-11-2012 History of Past i llness Narrative Problem Noted Date Resolved Date IUD (intrauterine [...] of this encounter (statuses as of 07/17/2022) [facility] History of Past illness Narrative* Problem Noted [...] of this encounter (statuses as of 10/11/2022) [facility] History of Past illness Narrative* Problem Noted [...] of this encounter (statuses as of 12/01/2022) [facility] History of Past illness Narrative* Problem Noted [...] of this encounter (statuses as of 12/05/2022) [facility] History of Past illness Narrative* Problem Noted [...] of this encounter (statuses as of 12/06/2022) [facility] History of Past illness Narrative* Problem Noted [...] of this encounter (statuses as of 12/25/2022) [facility] History of Past illness Narrative* Problem Noted [...] of this encounter (statuses as of 01/01/2023) [facility] of Past illness Narrative* Problem Noted [...] of this encounter (statuses as of 02/27/2023) [facility] of Past illness Narrative* Problem Noted [...] of this encounter (statuses as of 06/21/2023) [facility] of Past illness Narrative* Problem Noted [...] of this encounter (statuses as of 08/26/2023) [facility] of Past illness Narrative* Problem Noted [...] as of this encounter (statuses as of 01/07/2024) [facility] note* Diagnosis Encounter for screening mammogram for breast cancer [facility] Diagnosis Contact dermatitis, unspecified contact dermatitis type, unspecified trigger- Primary [facility] Diagnosis Abnormal mammogram- Primary Abnormal mammogram, unspecified [facility] Diagnosis Other specified hypothyroidism- Primary Migraine without aura and without status migrainosus, not intractable Migraine without aura, without mention of intractable migraine without mention of status migrainosus [facility] Diagnosis Abnormal mammogram Abnormal mammogram, unspecified [facility]* Diagnosis Onset Date Resolution Status Encounter for routine gynecological examination noneactive [facility] Work Phone: Evaluation note* Diagnosis Encounter for screening mammogram for breast cancer documented in this encounter [facility] note* Diagnosis Encounter for screening mammogram for breast cancer documented in this encounter [facility] noteNo assessment information availableSt. [facility] Work Phone: Reason for referral (narrative)* Diagnostic Procedure Only (Routine) - Closed Specialty Diagnoses / Procedures Referred By Rnoi alvarez Referred To Contact [facility] Diagnoses Encounter for screening mammogram for breast cancer Procedures AMIE SCREENING W NICK SCREENING DIGITAL BREAST TOMOSYNTHESIS BI SCREENING MAMMOGRAPHY BI 2-VIEW BREAST INC CAD Deonte Hanson MD [address] [id number] [facility] [address] [place] [address] Referral ID Status Reason Start Date Expiration Date Visits Requested Visits Authorized [id number] Closed Auto-Generated Referral Financial Clearance Required - OON Payor OON Notification Letter 07/12/2022 08/11/2023 1 0 [facility] for referral (narrative)* Diagnostic Procedure Only (Routine) - Pending Review Specialty Diagnoses / Procedures Referred By Roni alvarez Referred To Contact [facility] Diagnoses Abnormal mammogram Procedures US BREAST LTD LT US BREAST UNI REAL [place] [address] [place] [address] [facility] [address] [place] [address] Referral ID Status Reason Start Date Expiration Date Visits Requested Visits Authorized [id number] Pending Review Auto-Generat ed Referral 12/01/2022 12/31/2023 1 1 * Diagnostic Procedure Only (Routine) - Pending Review Specialty Diagnoses / Procedures Referred By Roni alvarez Referred To Contact [facility] Diagnoses Abnormal mammogram Procedures AMIE DIAGNOSTIC LT DIAGNOSTIC MAMMOGRAPHY COMPUTER-AIDED DETCJ UNI Deonte Hanson MD [address] [place] [address] [facility] [address] [place] [address] Referral ID Status Reason Start Date Expiration Date Visits Requested Visits Authorized [id number] Pending Review Auto-Generat ed Referral 12/01/2022 12/31/2023 1 1 [facility] for referral (narrative)* Diagnostic Procedure Only (Routine) - Pending Review Specialty Diagnoses / Procedures Referred By Roni alvarez Referred To Contact [facility] Diagnoses Encounter for screening mammogram for breast cancer Procedures AMIE SCREENING W NICK SCREENING DIGITAL BREAST TOMOSYNTHESIS BI SCREENING MAMMOGRAPHY BI 2-VIEW BREAST INC CAD Deonte Hanson MD [address] [place] [address] [facility] [address] [address] Referral ID Status Reason Start Date Expiration Date Visits Requested Visits Authorized [id number] Pending Review Auto-Generat ed Referral 01/02/2024 01/31/2025 1 1 [facility] for referral (narrative)No reason for referral information availableJefferson [facility] Services Work Phone: Reason for visit Narrative* Diagnostic Procedure Only (Routine) - Closed Specialty Diagnoses / Procedures Referred By Roni alvarez Referred To Contact [facility] Diagnoses Abnormal mammogram Procedures AMIE DIAGNOSTIC LT DIAGNOSTIC MAMMOGRAPHY COMPUTER-AIDED DETCJ [facility] Deonte Hanson MD [address] [place] [address] [facility] [address] [address] Referral ID Status Reason Start Date Expiration Date Visits Requested Visits Authorized [id number] Closed Auto-Generated Referral OON Notification Letter Patient Cleared - Admin/Metal Bed Assembler/D irector advise to proceed or did not respond 12/01/2022 12/31/2023 1 2 [facility] Summary Purpose Family History No Family History Records Found Relationship Condition Age at Onset Recorded Date/T antonia Not Specified Disorder of thyroid Unknown mother Asthma Unknown sister Malignant neoplasm of breast Unknown grandfather Malignant neoplasm of brain Unknown father Cardiac disease Unknown brother Multiple sclerosis Unknown Relationship Condition Age at Onset Recorded Date/T antonia mother Asthma Unknown sister Malignant neoplasm of breast Unknown Disorder of thyroid Unknown grandfather Malignant neoplasm of brain Unknown father Cardiac disease Unknown brother Multiple sclerosis Unknown sister Disorder of thyroid Unknown Advance Directives No Advanced Directives Records FoundNo Advanced Directives Records FoundNo Advanced Directives Records Found Chief Complaint and Reason for Visit Chief Complaint Annual (LUGGAGE MAKER) Reason for Visit Encounter for routin e gynecological examination Chief Complaint Annual (LUGGAGE MAKER) SCREENING Reason for Visit Encounter for routin e gynecological examination Chief Complaint Admit Date ACUTE COUGH May 22, 2025 1:2 8pm Additional Source Comments Source Comments (unrecognize d section and content) In the event this informatio n is protected by the Federal Confidentiality of Alcohol and Drug Abuse Patient Records regulations: The Federal rules restrict any use of the information to criminally investigate or prosecute any alcohol or drug abuse patient.[facility] the event this information is protected by the Federal Confidentiality of Alcohol and Drug Abuse Patient Records regulations: The Federal rules restrict any use of the information to criminally investigate or prosecute any alcohol or drug abuse patient.[facility] Center[facility] the event this information is protected by the Federal Confidentiality of Alcohol and Drug Abuse Patient Records regulations: The Federal rules restrict any use of the information to criminally investigate or prosecute any alcohol or drug abuse patient.[facility] Center[facility] the event this information is protected by the Federal Confidentiality of Alcohol and Drug Abuse Patient Records regulations: The Federal rules restrict any use of the information to criminally investigate or prosecute any alcohol or drug abuse patient.[facility] Health CenterIn the event this information is protected by the Federal Confidentiality of Alcohol and Drug Abuse Patient Records regulations: The Federal rules restrict any use of the information to criminally investigate or prosecute any alcohol or drug abuse patient.[facility] Center[facility] the event this information is protected by the Federal Confidentiality of Alcohol and Drug Abuse Patient Records regulations: The Federal rules restrict any use of the information to criminally investigate or prosecute any alcohol or drug abuse patient.[facility] CenterIn the event this information is protected by the Federal Confidentiality of Alcohol and Drug Abuse Patient Records regulations: The Federal rules restrict any use of the information to criminally investigate or prosecute any alcohol or drug abuse patient.[facility] CenterIn the event this information is protected by the Federal Confidentiality of Alcohol and Drug Abuse Patient Records regulations: The Federal rules restrict any use of the information to criminally investigate or prosecute any alcohol or drug abuse patient.[facility] CenterIn the event this information is protected by the Federal Confidentiality of Alcohol and Drug Abuse Patient Records regulations: The Federal rules restrict any use of the information to criminally investigate or prosecute any alcohol or drug abuse patient.[facility] CenterIn the event this information is protected by the Federal Confidentiality of Alcohol and Drug Abuse Patient Records regulations: The Federal rules restrict any use of the information to criminally investigate or prosecute any alcohol or drug abuse patient.[facility] CenterIn the event this information is protected by the Federal Confidentiality of Alcohol and Drug Abuse Patient Records regulations: The Federal rules restrict any use of the information to criminally investigate or prosecute any alcohol or drug abuse patient.[facility] CenterIn the event this information is protected by the Federal Confidentiality of Alcohol and Drug Abuse Patient Records regulations: The Federal rules restrict any use of the information to criminally investigate or prosecute any alcohol or drug abuse patient.[facility] Care Teams (unrecognized sec tion and content) It Systems Analyst Consultant Relationship Specialty Start Date End Date Deonte Hanson MD [address] [place] [address] PCP - General 07/21/09 It Systems Analyst Consultant Relationship Specialty Start Date End Date Deonte Hanson MD [address] [place] [id number] PCP - General 07/21/09 It Systems Analyst Consultant Relationship Specialty Start Date End Date Deonte Hanson MD [facility] [place] [address] PCP - General 07/21/09 It Systems Analyst Consultant Relationship Specialty Start Date End Date Deonte Hanson MD [facility] [place] [address] PCP - General 07/21/09 It Systems Analyst Consultant Relationship Specialty Start Date End Date Deonte Hanson MD [address] [place] [id number] PCP - General 07/21/09 It Systems Analyst Consultant Relationship Specialty Start Date End Date Deonte Hanson MD [address] [place] [id number] PCP - General 07/21/09 It Systems Analyst Consultant Relationship Specialty Start Date End Date Deonte Hanson MD [address] [place] [address] PCP - General 07/21/09 It Systems Analyst Consultant Relationship Specialty Start Date End Date Deonte Hanson MD [address] [place] [address] PCP - General 07/21/09 It Systems Analyst Consultant Relationship Specialty Start Date End Date Deonte Hanson MD [address] [place] [address] PCP - General 07/21/09 Team Status: Active Member Role Status Dates Dr. Deonte Hanson MD Family Provider Active Dr. Deonte Hanson MD Primary Care Provider Active Team Status: Inactive Member Role Status Dates Dr. Deonte Hanson MD Primary Care Provider, Referr ing Provider Active Dr. Shavon Duran MD Attending Provider Active Team Status: Inactive Member Role Status Dates Dr. Deonte Hanson MD Primary Care Provider Active Dr. Shavon Duran MD Attending Provider, Referr ing Provider Active It Systems Analyst Consultant Relationship Specialty Start Date End Date Deonte Hanson MD [address] [place], [place] [id number] PCP - General 07/21/09 Team Status: Active Member Role Status Dates Dr. Deonte Hanson MD Family Provider Active Dr. Vanessa Chandler MD Primary Care Provider Active Team Status: Inactive Member Role Status Dates Dr. Shavon Duran MD Attending Provider, Referr ing Provider Active Dr. Vanessa Chandler MD Primary Care Provider Active It Systems Analyst Consultant Relationship Specialty Start Date End Date Deonte Hanson MD [address] [place], [place] [address] PCP - General 07/21/09 [employer], AUBREY.BEHAVIOR SUPPORT SPECIALIST [address] [place], [place] [id number] Branch Assistant [facility] 09/28/24 Сергей Arzate APRN.BEHAVIOR SUPPORT SPECIALIST [address] [place], [place] [id number] Branch Assistant [facility] 10/07/24 Team Status: Active Member Role/Relationship Status Dates Dr. Deonte Hanson MD Family Provider Active Dr. Vanessa Chandler MD Primary Care Provider Active Team Status: Inactive Member Role/Relationship Status Dates Dr. Vanessa Chandler MD Primary Care Provider Active Start: May 22, 2025 End: May 22, 2025 Dr. Vanessa Chandler MD Referring Provider Active Start: May 22, 2025 End: May 22, 2025 Myke CATALAN PA Attending Provider Active St art: May 22, 2025 End: May 22, 2025 Reason for Visit (unrecogniz ed section and content) Reason Comments Acute Visit dry scalp Specialty Diagnoses / Procedures Referred By Contac t Referred To Contact FAMILY MEDICINE Diagnoses Dry scalp dry scalp Procedures est pt Deonte Hanson MD [address] [place] [address] [facility] [address] [place] [address] Referral ID Status Reason Start Date Expiration Date V isits Requested Visits Authorized [id number] Closed OON/Self Pay Override Patient Cleared - INN Insurance Found 10/09/2022 04/07/2023 1 0 Reason Comments Results Reason Comments Mammogram Result Call Back Reason Comments Forms Reason Comments Lab Orders INFORMATION SOURCE (unrecogn ized section and content) DATE CREATED AUTHOR 03/01/2023 [facility] DATE CREATED AUTHOR AUTHOR'S ORGANIZ ATION 01/10/2025 [facility] DATE CREATED AUTHOR AUTHOR'S ORGANIZ ATION 05/24/2025 [facility] Goals (unrecognized section and content) Goals may be documented in a n alternate sectionGoals may be documented in an alternate sectionGoals may be documented in an alternate section FOR RECORDS PERTAINING TO PATIENTS WHO ARE [...] BE BASED ON THE PRIMARY CLINICAL RECORDS. [facility] [employer] [facility]. provides no warranty or guarantee of the accuracy or completeness of information in this document.
== END | disposition home or self-care (01) ==
LOC: OPBI 08:36
PROVIDERS: PCP Internal Medicine; Referring Provider Nurse Practitioner Family; Visit Provider Nurse Practitioner Family
DX: Z12.31 Encounter for screening mammogram for malignant neoplasm of breast (principal)
CPT/HCPCS: 77063; 77067

== ENCOUNTER → 2025-09-09 | Outpatient (CLI) | payer BC, SELFPAY ==
--- NOTE | 2025-09-09 16:23 | RAD_ITS ---
PROCEDURE: CHEST PA AND LATERAL 09/09/2025 REASON FOR EXAM: COUGH TECHNIQUE: Procedure Code: RADCXR Modality: DX Procedure: CHEST PA AND LATERAL COMPARISON: None. FINDINGS: Lungs/Pleura: Clear. Heart/Mediastinum: Normal in size. Bones/Soft tissues: Unremarkable. RAD/Chest PA and Lateral IMPRESSION: No acute pulmonary disease. Reading Location: [id number]
== END | disposition home or self-care (01) ==
LOC: MTRAD 16:23
PROVIDERS: PCP Internal Medicine; Referring Provider Physician Assistant; Visit Provider Physician Assistant
DX: R05.1 Acute cough (principal)
CPT/HCPCS: 71046

== ENCOUNTER → 2025-09-24 | Outpatient (CLI) | payer BC, SELFPAY ==
[2025-09-24 16:21] LABS: Hematocrit 38.8 % (37-47); Hemoglobin 13.0 g/dL (12.0-15.0); Immature Granulocytes Count 0.030 X10^3/uL (0.0-0.0); Mean Corp Hgb Conc 33.5 g/dL (32-36); Mean Corpuscular Volume 94.4 fL (81-99); Mean Platelet Vol. 11.2 fl (6.2-12.0); NRBC Flagged by Analyzer 0 % (0-5); Platelet Count 231 K/mm3 (150-450); RBC Distribution Width CV 12.2 % (11.6-14.6); RBC Distribution Width SD 42.6 fl (35.1-43.9); Red Blood Count 4.11 M/mm3 (4.2-5.4); White Blood Count 11.6 K/mm3 (4.4-11.0)
--- NOTE | 2025-09-24 16:22 | US_ITS ---
PROCEDURE: TRANSVAGINAL NON- 09/24/2025 REASON FOR EXAM: AUB, IUD PLACEMENT TECHNIQUE: Procedure Code: USTVAG Modality: US Procedure: TRANSVAGINAL NON- COMPARISON: None FINDINGS: LMP: September 10, 2000. Measurements: Uterus: 9.3 cm x 7.4 cm x 4.2 cm with a volume of 150.9 mL Endometrial Thickness: 3 mm. The IUD is midline. Right Ovary: 4.6 cm x 2.9 cm x 3.1 cm with a volume of 21.8 mL. Left Ovary: 4.7 cm x 3 cm x 2.6 cm with a volume of 18.9 mL. Uterus: Normal size, myometrial echotexture, and contour. Endometrium: Unremarkable. IUD is seen within the midline of the endometrium. Right ovary: Dominant follicle seen within the ovary measuring 1.9 cm 1.7 cm 1.6 cm. Left ovary: Dominant follicle seen in the left ovary. The largest follicle measures 1.7 cm 1.9 cm 1.8 cm. Other: US/Transvaginal Non- IMPRESSION: IUD is seen within the central portion of the endometrium. Bilateral ovarian follicles. Reading Location: [place] [id number]
== END | disposition home or self-care (01) ==
PROVIDERS: PCP Internal Medicine; Referring Provider Obstetrics & Gynecology; Visit Provider Obstetrics & Gynecology
DX: N93.9 Abnormal uterine and vaginal bleeding, unspecified (principal)
CPT/HCPCS: 36415; 76830; 84443; 85025